=== PATIENT | female | born 1970 | race Caucasian/White ===

== ENCOUNTER 2020-08-19 14:15 | Inpatient (IN) | payer BC, SELFPAY ==
[2020-08-19] MEDS ORDERED: diphenhydrAMINE 50 MG/ML VIAL ONE (14:47)
[2020-08-19] MEDS ORDERED: Lorazepam 2 MG/ML VIAL ONE ×3 (14:47→17:08)
[2020-08-19 17:27] LABS: Bicarbonate (HCO3v) 17.8 mmol/L (22.0-28.0); CO2 Tension (PvCO2) 29.9 mmHg (40.0-50.0); Calcium, Ionized 1.02 mmol/L (1.15-1.33); Chloride 108 mmol/L (98-107); Hemoglobin - Calc 13.7 g/dL (12.0-16.0); Potassium 4.5 mmol/L (3.5-5.1); Sodium 133 mmol/L (138-145); T. Carbon Dioxide 18.7 mmol/L (22.0-28.0)
[2020-08-19] MEDS ORDERED: Cefepime 2 GM VIAL ONE (17:33)
[2020-08-19] MEDS ORDERED: Rocuronium Bromide 10 MG/ML (10ML VIAL) ONE (18:37)
[2020-08-19] MEDS ORDERED: Fentanyl 100 MCG/2 ML VIAL ONE ×2 (18:47→20:10)
[2020-08-19] MEDS ORDERED: Propofol 1,000 MG/100 ML VIAL IV ONE (18:47)
--- NOTE | 2020-08-19 18:57 | CT ---
HEAD CT WITHOUT CONTRAST: 08/19/20 COMPARISON: 04/18/20. HISTORY: Altered mental status, combative patient. TECHNIQUE: Axial CT imaging at 5 mm intervals from vertex through skull base without contrast. FINDINGS: There is motion artifact limiting detailed assessment at the level of the skull base. The imaged para nasal sinuses and mastoid air cells are well aerated. There is no displaced calvarial fracture, intra cranial hemorrhage, midline shift or mass effect. IMPRESSION: No intracranial hemorrhage or displaced calvarial fracture. POS: MARY
[2020-08-19 19:29] LABS: Actual Bicarbonate (HCO3a) 15.7 mEq/L (22-28); Analyzer IN Cardio ER; Base Excess (BEa) -10.5 mEq/L (-2.0 to +3.0); CO2 Tension 36.4 mmHg (35.0-45.0); Calcium, Ionized (arterial) 1.23 mmol/L (1.12-1.30); Carboxyhemoglobin (COHb) 0.3 gm% (0.0-3.0); Hemoglobin (Hb) 13.9 g/dL (12.0-16.0); O2 Tension (PaO2), arterial 236.7 mmHg (80.0-100.0); Potassium - ABG Lab 3.69 mmol/L (3.70-5.30)
[2020-08-19 19:30] LABS: Puncture Site RRA; pH, Arterial 7.25 (7.35-7.45)
[2020-08-19] MEDS ORDERED: Morphine 2 MG/ML VIAL SLOW IVP PRN (19:30)
[2020-08-19] MEDS ORDERED: DISCONTINUE PREVIOUS NARCOTIC PAIN MEDICATIONS AND BENZODIAZEPINES FS SCH (19:30)
[2020-08-19] MEDS ORDERED: Propofol BOLUS 1,000 MG/100 ML VIAL IV PRN (19:30)
[2020-08-19] MEDS ORDERED: Acyclovir Sodium 660 MG in Sodium Chloride 0.9% 100 ML IVPB SCH (19:30)
[2020-08-19] MEDS ORDERED: Vancomycin HCl 1.75 GM in Sodium Chloride 0.9% 500 ML IVPB SCH (19:30)
[2020-08-19] MEDS ORDERED: Fentanyl BOLUS 250 ML IVPB PRN (19:30)
--- NOTE | 2020-08-19 19:40 | RAD ---
CHEST 1 VIEW: Date: 08/19/2200 Time: 1509 hours HISTORY: Cough, chest pain. FINDINGS: The heart size is normal. The lungs are well expanded without lobar consolidation, pneumothoraces, or pleural effusions. IMPRESSION: No acute process. POS: OFF
--- NOTE | 2020-08-19 19:47 | RAD ---
XR Chest 1 View Portable History: Altered metal status Comparison: Radiograph same day Findings: Endotracheal tube tip level the clavicles in good position. Enteric tube tip in the gastric fundus. Hazy atelectasis within both lung bases. No pneumothorax. Impression: Satisfactory location of the endotracheal and enteric tubes.
[2020-08-19 20:13] LABS: T4 14.9 ug/dL (4.87-11.72); Thyroid Stimulating Hormone 0.0464 uIU/mL (0.35-4.94)
[2020-08-19 20:16] LABS: Troponin I Less than 0.010 ng/mL (< 0.028)
[2020-08-19 20:17] LABS: ALT (SGPT) 36 U/L (8-55); AST (SGOT) 44 U/L (5-34); Acetaminophen Less than 6.0 mcg/mL (10.0-30.0); Albumin 4.6 g/dL (3.5-5.0); Alcohol Less than 10 mg/dL (Less than 10); Alkaline Phosphatase 101 U/L (40-110); Anion Gap 22 mmol/L (10-20); BUN (Urea Nitrogen) 21 mg/dL (9.8-20.1); Bilirubin, Total 1.8 mg/dL (0.2-1.2); Calc. Creatinine Clearance 0 mL/min (70-130); Calcium 9.7 mg/dL (7.8-10.44); Carbon Dioxide 16 mmol/L (22-29); Chloride 103 mmol/L (98-107); Glucose 79 mg/dL (70-105); Potassium 4.3 mmol/L (3.5-5.1); Protein, Total 7.6 g/dL (6.0-8.3); Salicylate Less than 8.0 mg/dL (15.0-30.0); Sodium 137 mmol/L (136-145)
[2020-08-19 20:21] LABS: Bacteria/HPF None Seen HPF (None Seen); Bilirubin Negative (Negative); Blood, Urine Negative (Negative); Clarity Clear (Clear); Glucose, Urine (Dipstick) Normal (Negative); Ketone, Urine 20 mg/dL (Negative); Leukocyte Negative Leu/uL (Negative); Nitrite Negative (Negative); Protein, Urine (Dipstick) 10 mg/dL (Neg-Trace); RBC/HPF 0-3 HPF (0-3); Squamous Epithelial 0-3 HPF (0-3); Urobilinogen Normal mg/dL (Less than 2); WBC/HPF 0-3 HPF (0-3)
[2020-08-19 20:22] LABS: Amphetamine Detected (NotDetected); Barbiturates Screen Not Detected (NotDetected); Benzodiazepine Screen Not Detected (NotDetected); Cocaine Metabolite Screen Not Detected (NotDetected); Medtox Control Line Valid? VALID (VALID); Medtox Reader # READER 4; Methadone Not Detected (NotDetected); Methamphetamine Not Detected (NotDetected); Opiate Screen Not Detected (NotDetected); Oxycodone Screen Not Detected (NotDetected); Phencyclidine (PCP) Not Detected (NotDetected); THC/Cannabinoid Screen Not Detected (NotDetected); Tricyclic Screen Not Detected (NotDetected)
[2020-08-19] MEDS ORDERED: Acetaminophen 325 MG TAB PO PRN (21:42)
[2020-08-19] MEDS ORDERED: Bisacodyl 10 MG SUPP PR PRN (21:42)
[2020-08-19] MEDS ORDERED: Ondansetron ODT 4 MG TAB PO PRN (21:42)
[2020-08-19] MEDS ORDERED: Acetaminophen 650 MG Suppository PR PRN (21:42)
[2020-08-19] MEDS ORDERED: Ondansetron PF 4 MG/2 ML Vial IVP PRN (21:42)
--- NOTE | 2020-08-19 21:42 | PDOC.FPRHP ---
- History of Present Illness Chief Complaint: altered History of Present Illness: Pt is a 49 yo F with a PMH of depression, hypothyroidism, HTN who presents today altered. History was collected solely from . Last night patient started acting "weird". She complained of mouth ulcers but no other complaints. She see med to fidget more, but was still able to function. Today, however, patient became altered and started writhing around with sudden, jerking movements. She was unable to communicate. The choreiform movements start in her face and then go to her arms and legs. She has had mouth ulcers for about 10 years and notes when she complaints of these ulcers she also makes alot of sudden movements but is still able to function. Over this summer in March/April she was admitted to [facility] for a similar episode as today and was intubated and had a hospital stay of 2-3 weeks. She does not have a seizure disorder, but states she had seizures and passed out with her previous episode like this. She was seen by many specialists and all the knows is they did not have an answer. They did two LPs, an EEG and many scans of her head but he does not think anything was found. Her wants her to get a toxicology screen, although he has never seen her using any drugs. He does state that she sometimes will take medications not as prescribed, such as her depression medications and weight loss medications, but he thinks she is only taking synthroid now. He denies her complaining of any fevers, CP, SOB, vision changes, NELSON, abdominal pain, diarrhea. ED Course: acyclovir, 2L fluid, vanc, Lorazepam, Benadryl intubated in the ED, on propofol and fentanyl. LP attempted but not successful - Allergies/Adverse Reactions Allergies Allergy/AdvReac Type Severity Reaction Status Date / Time No Known Allergies Allergy Unverified 08/20/20 02:25 - Home Medications Medication Instructions Recorded Confirmed Type Levothyroxine Sodium 125 mcg PO DAILY 08/20/20 08/20/20 History [Levothyroxine] - History PMHx: HTN, hypothyroidism, depression PSHx: none FHx: sister- hemachromatosis Social: denies drug alcohol or tobacco use - Review of Systems ROS unobtainable: due to mental status - Vital signs BP: 107/60 HR: 119 RR: 30 Tmax: 102 Pox: 94% on RA Wt: 93 kg - Physical Exam -Constitutional: jerking around with sudden movements, unable to sit still. Flailing arms and legs. Once intubated, more calm but still moving around quite a bit HEENT: normocephalic and atraumatic -HEENT: many apthous ulcers on oral exam -Heart: tachycardic Lungs: CTAB, good air movement Abdomen: soft Musculoskeletal: normal structure -Neurological: pupils constricted to 2-3 mm -Skin: diffuse maculopapular rash -Psychiatric: not able to communicate FMR H&P: Results - Labs Result Diagrams: 08/20/20 09:36 08/20/20 09:36 Lab results: ABG pH 7.25 (7.35-7.45) L* 08/19/20 19:21 ABG pCO2 36.4 mmHg (35.0-45.0) 08/19/20 19:21 ABG pO2 236.7 mmHg (80.0-100.0) H 08/19/20 19:21 VBG pCO2 29.9 mmHg (40.0-50.0) L 08/19/20 16:54 VBG pO2 133.0 mmHg (35.0-45.0) H 08/19/20 16:54 Sodium 137 mmol/L (136-145) 08/19/20 15:40 Potassium 4.3 mmol/L (3.5-5.1) 08/19/20 15:40 Chloride 103 mmol/L (98-107) 08/19/20 15:40 Carbon Dioxide 16 mmol/L (22-29) L 08/19/20 15:40 BUN 21 mg/dL (9.8-20.1) H 08/19/20 15:40 Creatinine 1.12 mg/dL (0.6-1.1) H 08/19/20 15:40 Glucose 79 mg/dL (70-105) 08/19/20 15:40 Calcium 9.7 mg/dL (7.8-10.44) 08/19/20 15:40 Total Bilirubin 1.8 mg/dL (0.2-1.2) H 08/19/20 15:40 AST 44 U/L (5-34) H 08/19/20 15:40 ALT 36 U/L (8-55) 08/19/20 15:40 Alkaline Phosphatase 101 U/L (40-110) 08/19/20 15:40 Ammonia 37 umol/L (18-72) 08/19/20 15:40 Serum Total Protein 7.6 g/dL (6.0-8.3) 08/19/20 15:40 Albumin 4.6 g/dL (3.5-5.0) 08/19/20 15:40 Urine Ketones 20 mg/dL (Negative) A 08/19/20 15:40 Urine Blood Negative (Negative) 08/19/20 15:40 Urine Nitrite Negative (Negative) 08/19/20 15:40 Ur Leukocyte Esterase Negative Gena/uL (Negative) 08/19/20 15:40 Urine RBC 0-3 HPF (0-3) 08/19/20 15:40 Urine WBC 0-3 HPF (0-3) 08/19/20 15:40 Ur Squamous Epith Cells 0-3 HPF (0-3) 08/19/20 15:40 Urine Bacteria None Seen HPF (None Seen) 08/19/20 15:40 FMR H&P: A/P - Plan Encephalopathy with choreiform movements -2/2 Bechets vs meningitis vs drug use/polypharmacy vs another autoimmune proces s -patient has history of being altered after getting mouth sores, drug screen + for amphetamines -LP attempted in ED was unsuccessful, follow up IR guided LP -follow up ELOY screen, inflammatory markers, procal and other labs -follow up MRI brain -consider neuro and rheum consult SIRS -Tachycardic, febrile, tachypneic on admission -s/p fluids and antibiotics -unknown source, could be 2/2 meningitis, continue ampicillin, rocephin, vanc for empiric coverage; see plan above Depression -aware, not on any home meds Hypothyroidism -aware, continue levothyroxine but decrease home dose to 100mcg daily -TSH was low, T4 was high on admission labs HTN -aware, not on home meds -Hydralazine PRN Dispo: admitted to inpatient, CCU. On ventilator with pressure support of 10 and PEEP of 5. Fentanyl and Propofol for sedation, no need for pressors Diet: NPO Fluids: 100mL/hr LR DVT ppx: Lovenox Code: FULL PCP: city call FMR H&P: Upper Level - Plan Date/Time: 08/19/202141 ITrav PGY3, have evaluated this patient and agree with findings/plan as outlined by journalism intern resident. Pertinent changes/additions are listed here. 49-year-old female with past medical history of hypothyroidism presents for altered mental status and intractable lower extremity movement. states that starting 10 years ago she has had episodes where she develops oral ulcers and then has several days of altered mental status in the last 2 years these episodes have become more frequent and more severe. He states during these episodes she has no other symptoms. She has been hospitalized in the past for this at [facility] [place] [place] in [place] and has been states that the time they thought it was secondary to infection of some sort he was sent home. He states during that hospitalization she had high fever to 105. This episode started days ago and has gotten worse, on evaluation of resident team patient was nonverbal status post 5 mg of Ativan but was still very agitated. She was minimally responsive to stimuli however her legs were in constant motion repetitive flexion and extension at the hip and knee. On exam patient had slight tachycardia prior to intubation but normal rate and rhythm after intubation and vitals normalized. before she was febrile to 102 degrees, cardiopulmonary exam was within normal limits. Neurologic exam significant for above-stated lower extremity movements prior to increased sedation and intubation. Review of chest x-ray shows endotracheal tube above the afshin A/P SIRS positive without a source A- Stable and s/p 2L NS. BPs stable without need for pressors. s/p cefepime, vanc, and acyclovir. febrile and tachycardic in ED. Etiology unclear, CXR unremarkable, brain CT wnl. LP attempted and failed. P- considering choreoform mvmts and encephalopathy will treat for meningitis (vanc, rocephin, ampicillin) and plan for IR consult in AM for repeat LP -f/u BCx and UCx -trend LA Encephalopathy A- Sedated and intubated now. Differential includes intoxication vs. meningitis vs. Behet disease considering recurrent oral ulcers and neurologic manifestation P- MRI brain -morning consult IR for LP -inflammatory markers -procal -UDS Ventilator dependent A- intubated for protection of airway after multiple sedative medications P- admit CCU, consulted PULM -f/u pulm and RT recs hypothyroid A- TSH wnl, T4 14 P- will adjust home dose levothyroxine 125-->100, repeat labs in 4 weeks Dispo: admitted to inpatient, CCU. expect > 2 midnights Diet: NPO Fluids: 100mL/hr LR DVT ppx: Lovenox Code: FULL PCP: [facility] call Addendum - Attending - Attending Attestation Date/Time: 08/19/20 [id number] I personally evaluated the patient and discussed the management with Dr. Mehta and Dr. Flynn I agree with the History, Examination, Assessment and Plan documented above with any addition or exceptions noted below. Admit to ICU. Intubated. Encephalopathy. Unknown etiology. Called [facility] [place] [facility] but awaiting call back. Had extensive workup without diagnosis. Concern with possible vasculitis related disease. Rule out Lupus and Bechets. Spoke with [facility] neuro prior to LP to discuss serology orders. Not suspecting infection at this time. Start steroids. Will need to speak with uem in AM. Add serum serology. Yisel
[2020-08-19 22:32] LABS: Hemoglobin 14.7 g/dL (12.0-16.0); Mean Corpuscular HGB CONC 37.4 g/dL (32.0-36.0); Mean Corpuscular Volume 90.9 fL (78.0-98.0); Mean Platelet Volume 7.9 fL (7.4-10.4); Platelet Count 335 thou/uL (130-400); RBC Distribution Width 10.4 % (11.5-14.5); Red Blood Cell (RBC) Count 4.31 mill/uL (4.20-5.40); White Blood Cell (WBC) Count 35.5 thou/uL (4.8-10.8)
[2020-08-19 22:33] LABS: Band 15 % (5-11); Eosinophils 2 % (0-10); Lymphocytes 3 % (21-51); MDiff Complete? YES; Monocytes 4 % (0-10); Neutrophil 76 % (42-75); Platelet Morphology Comment Appears Adequate; Polychromasia SLIGHT = 2-3 cells (100X) (0-2/hpf)
[2020-08-19 23:09] LABS: SARS-CoV-2 NAA Rapid Test Not Detected (NotDetected)
[2020-08-19] MEDS ORDERED: Ventilator Sedation Protocol 1 EACH FS ONE (23:13)
[2020-08-19 23:14] VITALS: BMI 28.6
[2020-08-20 00:27] LABS: Syphilis Antibody Nonreactive (Nonreactive); Syphilis Antibody Index 0.04 S/CO (<1.00 Non-Reactive)
[2020-08-20 00:54] LABS: Lactic Acid 1.7 mmol/L (0.5-2.2)
[2020-08-20] MEDS: Lactated Ringer's 1,000 ML IV SCH ×3 (01:15→08:26)
[2020-08-20] MEDS: cefTRIAXone\\ROCEPHIN 2 GM in Sodium Chloride 0.9% 100 ML IVPB SCH ×3 (01:18→23:23)
[2020-08-20] MEDS: Propofol 1,000 MG/100 ML VIAL IV PRN ×5 (01:21→20:44)
[2020-08-20 01:41] LABS: HBSAg Index 0.18 S/CO (0-0.99); HIV (1/2) Antibody/Antigen Non-Reactive (NonReactive); HIV 1/2 INDEX 0.11 S/CO (<1.00); Hep B Surf Ag Non-Reactive S/CO (NonReactive); Hep C IgG Ab Non-Reactive (NonReactive); Hep C Index 0.07 S/CO (0-0.79)
[2020-08-20] MEDS: Lorazepam 2 MG/ML VIAL SLOW IVP PRN ×5 (03:34→18:29)
[2020-08-20] MEDS: Ampicillin 2 GM in Sodium Chloride 0.9% 100 ML IVPB SCH ×7 (03:34→22:43)
[2020-08-20] MEDS ORDERED: hydrALAZINE 20 MG/ML VIAL SLOW IVP PRN (03:45)
[2020-08-20 06:28] LABS: Actual Bicarbonate (HCO3a) 19.8 mEq/L (22-28); Base Excess (BEa) -6.7 mEq/L (-2.0 to +3.0); CO2 Tension 43.4 mmHg (35.0-45.0); Calcium, Ionized (arterial) 1.26 mmol/L (1.12-1.30); Carboxyhemoglobin (COHb) 0.4 gm% (0.0-3.0); Hemoglobin (Hb) 12.8 g/dL (12.0-16.0); O2 Tension (PaO2), arterial 158.6 mmHg (80.0-100.0); Potassium - ABG Lab 3.58 mmol/L (3.70-5.30); pH, Arterial 7.28 (7.35-7.45)
[2020-08-20] MEDS: Levothyroxine Sodium 100 MCG TAB PO SCH (06:30)
[2020-08-20 06:32] LABS: Puncture Site RRA
[2020-08-20] MEDS: fentaNYL Citrate/PF 2,000 MCG in Sodium Chloride 0.9% 60 ML IV SCH ×2 (06:43→18:48)
--- NOTE | 2020-08-20 07:46 | PDOC.FM ---
- Subjective Subjective: Stable on ventilator. RN Reports jerking, irregular movements when on sedation vacation. - Objective MAR Reviewed: Yes Vital Signs & Weight: Vital Signs (12 hours) Temp Pulse Resp BP Pulse Ox 08/20/20 06:33 72 92/50 L 08/20/20 06:00 16 08/20/20 04:00 98.3 F 16 08/20/20 02:42 73 94/52 L 08/20/20 02:00 16 08/20/20 00:37 100 08/20/20 00:00 16 08/19/20 23:58 76 92/53 L 08/19/20 23:19 16 08/19/20 23:00 98.1 F Weight Weight 90.6 kg Most Recent Monitor Data Heart Rate from ECG 76 NIBP 102/60 NIBP BP-Mean 74 Respiration from ECG 16 SpO2 100 I&O: 08/19/20 08/20/20 08/21/20 06:59 06:59 06:59 Intake Total 2061 Output Total 660 Balance 1401 Result Diagrams: 08/20/20 09:36 08/20/20 09:36 Radiology Reviewed by me: Yes Phys Exam - Physical Examination Constitutional: NAD HEENT: moist MMs, sclera anicteric Neck: no nodes Respiratory: no wheezing, no rales, no rhonchi, clear to auscultation bilateral Cardiovascular: RRR, no significant murmur Gastrointestinal: soft, non-tender Musculoskeletal: no edema Neurological: moves all 4 limbs Skin: no rash, normal turgor Dx/Plan (1) Encephalopathy acute Code(s): G93.40 - ENCEPHALOPATHY, UNSPECIFIED Status: Acute (2) Depression Code(s): F32.9 - MAJOR DEPRESSIVE DISORDER, SINGLE EPISODE, UNSPECIFIED Status: Acute (3) Hypothyroidism Code(s): E03.9 - HYPOTHYROIDISM, UNSPECIFIED Status: Acute (4) HTN (hypertension) Code(s): I10 - ESSENTIAL (PRIMARY) HYPERTENSION Status: Acute - Plan Plan: General / CCU - Intubated 08/19 - On propofol and fentanyl for sedation Encephalopathy with choreiform movements - Wide differential at this time. Has had previous workup for similar presentation at [facility] in [place]. bring records this evening and [facility] faxed for records. - Consult neurology, appreciate recommendations. - Positive drug screen for amphetamines - LP pending - MRI pending - h/o mouth ulcers, add HSV to CSF studies. SIRS - Tachycardic, febrile, tachypneic on admission - s/p fluids and antibiotics - unknown source, could be 2/2 meningitis, continue ampicillin, rocephin, vanc for empiric coverage Depression - Will verify with home medications Hypothyroidism - Aware, continue levothyroxine but decrease home dose to 100mcg daily - TSH was low, T4 was high on admission labs HTN - aware, not on home meds - Hydralazine PRN Dispo: Admitted to inpatient, CCU. Anticipate LOS > 48 hours. Diet: NPO, if remains on ventilator will initiate tube feeds. Fluids: 100mL/hr LR DVT ppx: Lovenox Code: FULL PCP: candace vaughn Addendum - Attending - Attending Attestation Date/Time: 08/20/20 2206 I personally evaluated the patient and discussed the management with Dr. Gamboa. I agree with the History, Examination, Assessment and Plan documented above with any addition or exceptions noted below. Patient here with encephalopathy and movement disorder of currently uncertain etiology. Choreaform versus ballismus movements, with history of similar while hospitalized at [facility]. Will attempt to obtain records. Needs MRI and LP today. Neuro consult, suspect EEG needed. Wide differential including toxic, medication induced, autoimmune, infectious. Continue airway protection on ventilator, wean as tolerated. Further workup and mgmt pending clinical course.
--- NOTE | 2020-08-20 08:50 | CON ---
DATE OF CONSULTATION: 08/20/2020 This is 45 minutes of critical care time. REASON FOR CONSULTATION: Ventilator management and ICU management. HISTORY OF PRESENT ILLNESS: This is a 49-year-old female, who presented to the hospital last night with choreiform movements and altered mental status. I am told she had a similar hospitalization this summer at [facility]. The residence history mentions mouth ulcers. Also mentions a rash. She is scheduled to go down for a lumbar puncture later today. She has been intubated and has been placed on mechanical ventilation. I think mainly for sedation purposes more than anything else. Neurology has also been consulted and she is scheduled for an MRI later today. PAST MEDICAL HISTORY: 1. Hypothyroidism. 2. Depression. 3. Hypertension. PAST SURGICAL HISTORY: None. FAMILY MEDICAL HISTORY: Remarkable for hemochromatosis in the sister. SOCIAL HISTORY: Does not smoke. Does not use illicit drugs, but did have a positive drug screen for amphetamines. REVIEW OF SYSTEMS: Unobtainable because the patient is intubated. ALLERGIES: NONE. PHYSICAL EXAMINATION: VITAL SIGNS: Heart rate 90, blood pressure 125/75, O2 saturation 100%, respiratory rate 26, and temperature 98.4. GENERAL: She is a middle-aged woman, who does not appear to be in any overt distress when she is sedated. HEENT: Looks like there is an ulcer on her upper lip. NECK: No adenopathy or JVD. LUNGS: Clear to auscultation. CARDIOVASCULAR: S1 and S2. Regular without murmur. ABDOMEN: Soft and nontender to palpation. EXTREMITIES: No clubbing, cyanosis, or edema. She moves all 4 extremities. LABORATORY DATA: White blood cell count 35.5, hematocrit 39.2, platelet count 335 with 76% neutrophils, 15% bands. PH of 7.28, pCO2 of 43, pO2 of 158, that is on SIMV rate 16, tidal volume 450, PEEP 5, pressure support 10, FiO2 of 40%. Sodium 137, potassium 4.3, chloride 103, CO2 of 16, BUN 21, creatinine 1.1, glucose 79, AST 44, ALT 36, total bilirubin 1.8. TSH is 0.04. Free T4 is 2.6. Thyroxine level is 14.9. C-reactive protein is 15.7. Procalcitonin level is 0.27. Chest x-ray demonstrates an intubated patient. The endotracheal tube is appropriately positioned. The lung tejada are clear. ASSESSMENT: This is a 49-year-old female presenting with altered mental status with an anion gap metabolic acidosis. She has a slight metabolic alkalosis also. Her thyroid function test show hyperthyroidism, which I would guess is secondary to exogenous administration of thyroid medication given review of her medication profile. The differential diagnosis of altered mental status would be vasculitis such as, Behcet's disease, overt meningitis, or ingestion of inappropriate medication. Her tox screen does not show any elevation of acetaminophen or aspirin. Alcohol level is less than 10. Amphetamine screen was positive. It does not look like methanol or ethylene glycol levels were checked. I will look into whether or not she has an osmolar gap. PLAN: I would leave intubated and sedated and obtain the lumbar puncture and MRI as you are doing. If further workup for infection is negative, then I would consider Rheumatology consultation and perhaps treatment of vasculitis with steroids. If Rheumatology is unable to come to the hospital, then I would suggest transfer to a center, where that is available if consultation needed. Job ID: [id number]
[2020-08-20] MEDS ORDERED: Enoxaparin Sodium 40 MG/0.4 ML SYRINGE SC SCH (09:00)
[2020-08-20] MEDS ORDERED: Non-Formulary Item 1 EACH (Levothyroxine Sodium [Levothyroxine] 137 MCG Capsule) PO SCH (09:00)
[2020-08-20] MEDS: SODIUM CHLORIDE 0.45% IV SCH ×2 (09:45→21:18)
[2020-08-20] MEDS: SODIUM BICARBONATE IV SCH ×2 (09:45→21:18)
[2020-08-20] MEDS: Vecuronium 10 MG VIAL IV PRN ×2 (09:59→11:50)
[2020-08-20 10:05] LABS: #Eosinphils 0.3 thou/uL (0.0-0.7); #Lymphocytes 1.9 thou/uL (1.20-3.40); #Monocytes 0.8 thou/uL (0.11-0.59); #Neutrophils 9.7 thou/uL (1.40-6.50); %Basophils 0.4 % (0.0-1.0); %Eosinophils 2.1 % (0.0-10.0); %Lymphocytes 15.1 % (21.0-51.0); %Monocytes 6.5 % (0.0-10.0); Hemoglobin 13.1 g/dL (12.0-16.0); Mean Corpuscular HGB CONC 35.2 g/dL (32.0-36.0); Mean Corpuscular Hemoglobin 33.7 pg (27.0-31.0); Mean Corpuscular Volume 95.9 fL (78.0-98.0); Mean Platelet Volume 7.4 fL (7.4-10.4); Platelet Count 255 thou/uL (130-400); RBC Distribution Width 10.8 % (11.5-14.5); Red Blood Cell (RBC) Count 3.88 mill/uL (4.20-5.40); White Blood Cell (WBC) Count 12.8 thou/uL (4.8-10.8)
[2020-08-20 10:15] LABS: ALT (SGPT) 30 U/L (8-55); AST (SGOT) 37 U/L (5-34); Albumin 3.4 g/dL (3.5-5.0); Alkaline Phosphatase 77 U/L (40-110); Anion Gap 14 mmol/L (10-20); BUN (Urea Nitrogen) 16 mg/dL (9.8-20.1); Bilirubin, Total 0.6 mg/dL (0.2-1.2); Calc. Creatinine Clearance 113 mL/min (70-130); Calcium 8.6 mg/dL (7.8-10.44); Carbon Dioxide 18 mmol/L (22-29); Chloride 109 mmol/L (98-107); Globulin 2.5 g/dL (2.4-3.5); Glucose 64 mg/dL (70-105); Potassium 3.7 mmol/L (3.5-5.1); Protein, Total 5.9 g/dL (6.0-8.3); Sodium 137 mmol/L (136-145)
[2020-08-20 12:31] LABS: Ref Lab Test Ordered AMPHETAMINES UR; Reference Lab Name LABCORP
--- NOTE | 2020-08-20 12:55 | MRI ---
MRI BRAIN WITH AND WITHOUT CONTRAST: DATE: 08/20/2020 HISTORY: 49-year-old female with encephalopathy, choreiform movements. Altered mental status. TECHNIQUE: Multiple sequences obtained in axial, sagittal, and coronal planes; pre and post IV injection of gado linium-based contrast agent: 18 mL MultiHance. FINDINGS: The ventricles are normal in size and configuration. On FLAIR, the bilateral cerebral white matter a ppears diffusely slightly more hyperintense than usual. That could be due to technique, although actu al white matter pathology is not completely ruled out. The sulci appear minimally narrowed diffusely . There is no asymmetrical intraaxial signal abnormality, restricted diffusion, abnormal intraaxial e nhancement, mass, midline shift or any other mass effect, recent intraaxial hemorrhage, or extraaxial fluid collection. IMPRESSION: 1) Questionable diffuse mild acute white matter pathology vs normal. 2) Consider follow up. [email or web address][] POS: JIN
[2020-08-20 13:09] LABS: CSF, Glucose 55 mg/dl (40-70); CSF, Protein 52 mg/dL (15-40)
[2020-08-20 13:10] LABS: CSF Source CSF; Clarity Clear (Clear); Tube # 4
[2020-08-20] MEDS: Vancomycin 1.5 GRAM/300 ML BAG 1.5 GM in Premix Bag 1 BAG IVPB SCH ×2 (13:16→21:18)
[2020-08-20 13:21] LABS: Unspun CSF Color COLORLESS (Colorless)
[2020-08-20 13:22] LABS: Color Of CSF Supernatant COLORLESS (Colorless); Tube # 1
--- NOTE | 2020-08-20 13:25 | PDOC.EVN ---
Event Note - Event Note Event Note: Called patient's to elicit more history and update on his status. He states that she frequently has outbreaks of oral lesions and will "go through a tube of orajel" because they are so painful. He states that in April when her neurological symptoms presented she had oral lesions and again for this presentation. He is convinced there is a connection. He states she was writhing around in bed and incoherent. He says in April they let it go on longer prior to bringing her to the hospital. This time they came to the hospital sooner. They live in [place], [place]. He endorses that she used illicit drugs more than 20 years ago before they , however he does not believe she uses any now. She only takes medication for her thyroid. Her PCP is Dr. Tang in [place], [place].
--- NOTE | 2020-08-20 13:52 | RAD ---
FLUOROSCOPIC GUIDED LUMBAR PUNCTURE: INDICATION: Altered mental status with concern for meningitis. TECHNIQUE: Informed consent was obtained of the patient. The patient was sedated and intubated with respiratory therapy and the patient's ICU nurse present at bedside during the procedure. The patient was placed prone on the fluoroscopic table. Site overlying the right L2-3 interlaminar space was marked on the p atient's skin. The site was prepped and draped in the usual sterile fashion. Buffered 1% lidocaine was administered to the overlying subcutaneous tissues. Under fluoroscopic guidance, a 22-gauge spina l needle was guided down into the thecal sac via the right L2-3 interlaminar space. There was spontaneous return of normal appearing CSF fluid. 11.5 cc of normal-appearing CSF was removed in 4 se parate aliquots. The inner stylette was replaced within the needle and the needle was removed. Pressure was held at the sampling site till hemostasis was obtained. The site was then cleansed and b andaged. Total fluoroscopic time was 0.6 minutes. Total exposure was 269.1 microGy*^m2. IMPRESSION: Successful fluoroscopic-guided lumbar puncture with removal of 11.5 cc of normal appearing CSF fluid. Transcribed Date/Time: 08/20/2020 2:35 PM
--- NOTE | 2020-08-20 15:58 | CON ---
NEUROLOGY CONSULTATION DATE OF CONSULTATION: 08/20/2020 REASON FOR CONSULTATION: Altered mental status. HISTORY OF PRESENT ILLNESS: Ms. Loreta Brown is a 49-year-old female with medical history significant for depression, hypothyroidism, hypertension, presented to the emergency room yesterday with altered mental status. No family at bedside, so history is obtained from review of the medical records. Per the patient's , she was brought last night because she was acting weird and has mouth ulcers, and seems to be fidgety and has sudden jerking movements of the extremities. The abnormal movements usually starts in her face and then go to her legs and arms. She also had mouth ulcers for about 10 years, but she was still able to function. At this time, she was admitted to [facility] with a similar episode and was intubated and hospital stay was 2 to 3 weeks. She does not have a seizure disorder, but she had episodes, which look like seizures with abnormal jerking. She has been seen by many specialists and all her workup have been negative so far including two LPs and EEGs and the several scans of her head. She does have history of depression and hypothyroidism and takes only thyroid medication. The denies any focal weakness, focal paresthesias, nausea, vomiting, headache, chest pain, abdominal pain, headache, double vision, recent illness or recent exposure to COVID. In the emergency room, she was extremely agitated and she was intubated and sedated with propofol and fentanyl. She was also started on acyclovir and fluids and vancomycin. ALLERGIES: NO KNOWN DRUG ALLERGIES. PAST MEDICAL HISTORY: Hypertension, hypothyroidism, depression. PAST SURGICAL HISTORY: None. FAMILY HISTORY: Sister has hemochromatosis. SOCIAL HISTORY: The patient denies alcohol. The denies any drug, alcohol, or illegal drug use. She has history of using illicit drugs 20 years ago before she was . REVIEW OF SYSTEMS: Unobtainable due to the patient's mental status. Vital Signs & Weight: Vital Signs (12 hours) Temp Pulse Resp BP Pulse Ox 08/20/20 06:33 72 92/50 L 08/20/20 06:00 16 08/20/20 04:00 98.3 F 16 08/20/20 02:42 73 94/52 L 08/20/20 02:00 16 08/20/20 00:37 100 08/20/20 00:00 16 08/19/20 23:58 76 92/53 L 08/19/20 23:19 16 08/19/20 23:00 98.1 F Weight Weight 90.6 kg Most Recent Monitor Data Heart Rate from ECG 76 NIBP 102/60 NIBP BP-Mean 74 Respiration from ECG 16 SpO2 100 I&O: 08/19/20 08/20/20 08/21/20 06:59 06:59 06:59 Intake Total 2061 Output Total 660 Balance 1401 PHYSICAL EXAMINATION: Constitutional: NAD HEENT: moist MMs, sclera anicteric Neck: no nodes Respiratory: no wheezing, no rales, no rhonchi, clear to auscultation bilateral Cardiovascular: RRR, no significant murmur Gastrointestinal: soft, non-tender Musculoskeletal: no edema Neurological: Mental status, the patient is intubated and sedated. She does not follow commands. She does not maintain eye contact. Cranial nerves pupils 4 mm, round and reactive to light. Face symmetric. Tongue midline. Corneals positive. Cough positive. Motor, muscle tone and bulk are normal. No spontaneous movement of all 4 extremities seen. Sensory, withdraws to nailbed pressure bilaterally. Cerebellar, did not cooperate with the testing due to sedation. Gait deferred due to the patient's safety reason and due to the patient being sedated and intubated. NEUROLOGIC: DATA REVIEWED: I reviewed the MRI of the brain, which was negative for acute intracranial pathology. She has increased white count 35.5 and also on initial presentation, BUN was 21 and creatinine of 1.12. Lab results: ABG pH 7.25 (7.35-7.45) L* 08/19/20 19:21 ABG pCO2 36.4 mmHg (35.0-45.0) 08/19/20 19:21 ABG pO2 236.7 mmHg (80.0-100.0) H 08/19/20 19:21 VBG pCO2 29.9 mmHg (40.0-50.0) L 08/19/20 16:54 VBG pO2 133.0 mmHg (35.0-45.0) H 08/19/20 16:54 Sodium 137 mmol/L (136-145) 08/19/20 15:40 Potassium 4.3 mmol/L (3.5-5.1) 08/19/20 15:40 Chloride 103 mmol/L (98-107) 08/19/20 15:40 Carbon Dioxide 16 mmol/L (22-29) L 08/19/20 15:40 BUN 21 mg/dL (9.8-20.1) H 08/19/20 15:40 Creatinine 1.12 mg/dL (0.6-1.1) H 08/19/20 15:40 Glucose 79 mg/dL (70-105) 08/19/20 15:40 Calcium 9.7 mg/dL (7.8-10.44) 08/19/20 15:40 Total Bilirubin 1.8 mg/dL (0.2-1.2) H 08/19/20 15:40 AST 44 U/L (5-34) H 08/19/20 15:40 ALT 36 U/L (8-55) 08/19/20 15:40 Alkaline Phosphatase 101 U/L (40-110) 08/19/20 15:40 Ammonia 37 umol/L (18-72) 08/19/20 15:40 Serum Total Protein 7.6 g/dL (6.0-8.3) 08/19/20 15:40 Albumin 4.6 g/dL (3.5-5.0) 08/19/20 15:40 Urine Ketones 20 mg/dL (Negative) A 08/19/20 15:40 Urine Blood Negative (Negative) 08/19/20 15:40 Urine Nitrite Negative (Negative) 08/19/20 15:40 Ur Leukocyte Esterase Negative Gena/uL (Negative) 08/19/20 15:40 Urine RBC 0-3 HPF (0-3) 08/19/20 15:40 Urine WBC 0-3 HPF (0-3) 08/19/20 15:40 Ur Squamous Epith Cells 0-3 HPF (0-3) 08/19/20 15:40 Urine Bacteria None Seen HPF (None Seen) 08/19/20 15:40 ASSESSMENT AND PLAN: (1) Encephalopathy acute Code(s): G93.40 - ENCEPHALOPATHY, UNSPECIFIED Status: Acute (2) Depression Code(s): F32.9 - MAJOR DEPRESSIVE DISORDER, SINGLE EPISODE, UNSPECIFIED Status: Acute (3) Hypothyroidism Code(s): E03.9 - HYPOTHYROIDISM, UNSPECIFIED Status: Acute (4) HTN (hypertension) Code(s): I10 - ESSENTIAL (PRIMARY) HYPERTENSION Status: Acute MsDudley Brown is a 49-year-old female with medical history significant for hypertension, hypothyroidism, oral ulcers, presented with altered mental status with choreiform movements. Differential diagnosis includes Bechets disease versus meningitis versus drug versus autoimmune process. MRI of the brain reviewed, which was negative for acute intracranial pathology. Consider Rheumatology input regarding autoimmune process and the ID input for concern about meningitis because of increased white count. LP completed, results pending. EEG to rule out underlying cortical irritability and to capture these choreiform movement episodes for definitive diagnosis. Neuro checks every 4 hours. Continue medical management per primary team. Further recommendations will depend on the results of the testing. Plan discussed in detail with the nursing staff and also with the primary team. We will continue to follow. Thank you for the consult. Job ID: [id number] MTDD
[2020-08-20] MEDS: methylPREDNISolone Sod Succ 40 MG VIAL IVP SCH ×2 (18:09→23:24)
--- NOTE | 2020-08-20 21:22 | PDOC.EEG ---
Neurology EEG Report - Report Report: This EEG was performed using 24 channel [employer] video digital EEG machine with 24 disc electrodes. This was an extended 2-hours 4 minutes of inpatient video EEG recording. Digital analysis of the EEG was done for [place] and seizure detection which revealed no abnormalities. Background: The posterior background rhythm is not observed. Hyperventilation: Not performed. Photic stimulation. Bioccipital symmetric response not seen with photic stimulation. Sleep: No stage change was observed. EEG diagnosis: Generalized irregular theta activity seen with superimposed beta seen during the recording. Absence of posterior background rhythm. Clinical interpretation: This EEG is consistent with mild to moderate generalized nonspecific cerebral dysfunction.
[2020-08-21] MEDS: Ampicillin 2 GM in Sodium Chloride 0.9% 100 ML IVPB SCH ×2 (04:15→07:46)
[2020-08-21] MEDS: fentaNYL Citrate/PF 2,000 MCG in Sodium Chloride 0.9% 60 ML IV SCH ×2 (04:18→17:05)
[2020-08-21] MEDS: Propofol 1,000 MG/100 ML VIAL IV PRN ×5 (04:20→20:34)
[2020-08-21] MEDS: SODIUM BICARBONATE IV SCH (05:56)
[2020-08-21] MEDS: SODIUM CHLORIDE 0.45% IV SCH (05:56)
[2020-08-21] MEDS: Levothyroxine Sodium 100 MCG TAB PO SCH (05:57)
[2020-08-21] MEDS: methylPREDNISolone Sod Succ 40 MG VIAL IVP SCH ×4 (05:58→23:02)
[2020-08-21 06:18] LABS: #Lymphocytes 0.7 thou/uL (1.20-3.40); #Neutrophils 8.1 thou/uL (1.40-6.50); %Basophils 0.1 % (0.0-1.0); %Eosinophils 0.1 % (0.0-10.0); %Lymphocytes 7.3 % (21.0-51.0); %Monocytes 0.2 % (0.0-10.0); %Neutrophils 92.3 % (42.0-75.0); Hemoglobin 12.2 g/dL (12.0-16.0); Mean Corpuscular HGB CONC 35.2 g/dL (32.0-36.0); Mean Corpuscular Hemoglobin 33.1 pg (27.0-31.0); Mean Platelet Volume 7.7 fL (7.4-10.4); Platelet Count 251 thou/uL (130-400); RBC Distribution Width 10.6 % (11.5-14.5); Red Blood Cell (RBC) Count 3.69 mill/uL (4.20-5.40); White Blood Cell (WBC) Count 8.8 thou/uL (4.8-10.8)
[2020-08-21 06:41] LABS: ALT (SGPT) 34 U/L (8-55); AST (SGOT) 33 U/L (5-34); Albumin 3.2 g/dL (3.5-5.0); Alkaline Phosphatase 76 U/L (40-110); Anion Gap 19 mmol/L (10-20); BUN (Urea Nitrogen) 17 mg/dL (9.8-20.1); Bilirubin, Total 0.3 mg/dL (0.2-1.2); Calc. Creatinine Clearance 103 mL/min (70-130); Calcium 8.2 mg/dL (7.8-10.44); Carbon Dioxide 17 mmol/L (22-29); Chloride 109 mmol/L (98-107); Globulin 2.5 g/dL (2.4-3.5); Glucose 120 mg/dL (70-105); Potassium 3.9 mmol/L (3.5-5.1); Protein, Total 5.7 g/dL (6.0-8.3); Sodium 141 mmol/L (136-145)
[2020-08-21 06:53] LABS: Actual Bicarbonate (HCO3a) 16.8 mEq/L (22-28); Base Excess (BEa) -10.1 mEq/L (-2.0 to +3.0); CO2 Tension 40.2 mmHg (35.0-45.0); Calcium, Ionized (arterial) 1.25 mmol/L (1.12-1.30); Carboxyhemoglobin (COHb) 0.7 gm% (0.0-3.0); Hemoglobin (Hb) 14.9 g/dL (12.0-16.0); O2 Tension (PaO2), arterial 83.2 mmHg (80.0-100.0)
--- NOTE | 2020-08-21 07:12 | PDOC.FM ---
- Subjective Subjective: Stable this morning. Having breakthrough agitation/movements despite sedation. - Objective MAR Reviewed: Yes Vital Signs & Weight: Vital Signs (12 hours) Temp Pulse Resp BP Pulse Ox 08/21/20 06:00 16 08/21/20 04:00 98 F 16 08/21/20 02:44 88 108/60 08/21/20 02:00 16 08/21/20 00:00 97.9 F 16 08/20/20 23:51 86 08/20/20 22:00 16 08/20/20 20:00 99.4 F 16 100 Weight Admit Weight 90.265 kg Weight 90.6 kg Most Recent Monitor Data Heart Rate from ECG 78 NIBP 101/56 NIBP BP-Mean 71 Respiration from ECG 1 SpO2 100 I&O: 08/20/20 08/21/20 08/22/20 06:59 06:59 06:59 Intake Total 2061 3843 Output Total 660 2985 Balance 1401 858 Result Diagrams: 08/21/20 05:50 08/21/20 05:50 Radiology Reviewed by me: Yes Phys Exam - Physical Examination Constitutional: NAD HEENT: PERRLA, moist MMs Neck: no nodes Respiratory: no wheezing, no rales, no rhonchi, clear to auscultation bilateral Cardiovascular: RRR, no significant murmur Gastrointestinal: soft, no distention Musculoskeletal: no edema Neurological: moves all 4 limbs abnormal, jerking movemens. Deviation from normal: Intubated and sedated Skin: no rash, normal turgor Dx/Plan (1) Encephalopathy acute Code(s): G93.40 - ENCEPHALOPATHY, UNSPECIFIED Status: Acute (2) Depression Code(s): F32.9 - MAJOR DEPRESSIVE DISORDER, SINGLE EPISODE, UNSPECIFIED Status: Acute (3) Hypothyroidism Code(s): E03.9 - HYPOTHYROIDISM, UNSPECIFIED Status: Acute (4) HTN (hypertension) Code(s): I10 - ESSENTIAL (PRIMARY) HYPERTENSION Status: Acute - Plan Plan: General / CCU - Intubated 08/19 - On propofol and fentanyl for sedation - architectural renderer consulted for tube feeds. Encephalopathy with choreiform movements - Wide differential at this time. Has had previous workup for similar presentation at [facility] in [place]. bring records this evening and [facility] faxed for records. - Consult neurology, appreciate recommendations. EEG showed mild to moderate generalized nonspecific cerebral dysfunction. - Positive drug screen for amphetamines - LP cultures and HSV pending. - MRI negative for acute intracranial pathology. Non-anion gap metabolic acidosis - aware, received bicarb yesterday without significant improvement. SIRS - Tachycardic, febrile, tachypneic on admission - s/p fluids and antibiotics - unknown source, could be 2/2 meningitis, continue ampicillin, rocephin, vanc for empiric coverage Depression - Currently not on any medications. Hypothyroidism - Aware, continue levothyroxine but decrease home dose to 100mcg daily - TSH was low, T4 was high on admission labs HTN - aware, not on home meds - Hydralazine PRN Dispo: Admitted to inpatient, CCU. Anticipate LOS > 48 hours. Diet: Tube feeds Fluids: SL DVT ppx: Lovenox Code: FULL PCP: Dr. Tang in [place], [place] Addendum - Attending - Attending Attestation Date/Time: 08/21/20 1038 I personally evaluated the patient and discussed the management with Dr. Gamboa. I agree with the History, Examination, Assessment and Plan documented above with any addition or exceptions noted below. Patient overall stable. Continues to have some persistent movements despite sedation. MRI non revealing, LP studies resulting normal but so far nothing major noted. Neuro and Pulm on board. Continue present management and further mgmt pending clinical course.
[2020-08-21 07:21] LABS: Puncture Site RRA; pH, Arterial 7.24 (7.35-7.45)
--- NOTE | 2020-08-21 08:48 | RAD ---
CHEST 1 VIEW PORTABLE: Date: 08/21/2020 HISTORY: Follow-up pneumonia. COMPARISON: 08/19/2020. FINDINGS/IMPRESSION: NG tube and endotracheal tube remain in place. Bilateral vascular congestion with increased markings in the perihilar regions and lower lung zones, showing some progression when compared to 08/19/2020 s tudy. No new confluent pneumonia or significant pleural effusion. Continue short-term follow-up. POS: RRE
--- NOTE | 2020-08-21 09:01 | PRG ---
DATE OF SERVICE: 08/21/2020 35 minutes of critical care time. SUBJECTIVE: The patient remains intubated on mechanical ventilation. She will wake up and follow some commands. OBJECTIVE: VITAL SIGNS: Temperature 98, pulse 72, blood pressure 99/50, O2 saturation 100%, 24-hour intake 3843 and output 2985. HEENT: Unchanged. NECK: No JVD. LUNGS: Clear anteriorly. CARDIOVASCULAR: S1, S2. Regular. ABDOMEN: Soft. EXTREMITIES: No edema. She continues to have these choreiform movements with her arms and her legs at times. LABORATORY DATA: Her CSF was really nondescript except for slightly elevated total protein. White blood cell count 8.8, hematocrit 34.7, and platelet count 251. PH 7.24, pCO2 of 40, pO2 of 83 on SIMV rate 16, tidal volume 450, PEEP 5, pressure support 10, FiO2 of 40%. Sodium 141, potassium 3.9, chloride 109, CO2 of 17, BUN 17, creatinine 0.9, glucose 120, albumin is 3.2. Her measured serum osmolar gap was not different from her calculated one. Chest x-ray shows no mass, effusion, or infiltrate. ASSESSMENT: 1. Acute respiratory failure, requiring mechanical ventilation. 2. Fairly severe metabolic acidosis, which appears to be mostly non-anion gap. This has not corrected much with bicarbonate administration yesterday. 3. History of underlying major depression. 4. History of oral ulcers. PLAN: Behcet disease is a rather rare diagnosis in people in this part of the [place]. The oral ulcers and her neuropsychiatric symptoms are really the only things that would point us in that direction. We are awaiting records from [facility] and [facility] as she had a similar admission in that facility recently. There appeared to be some component of underlying renal dysfunction leading to the acidosis. This makes me hesitant to proceed with extubation at this time until I am able to better cover up her acidosis. She has pending Neurology and ID consultations. In the end, this may all be major depression/psychosis type symptoms. If that is the case, then she will need to be started on some type of antidepressant therapy. Job ID: [id number]
[2020-08-21] MEDS: Sodium Bicarbonate 140 MEQ in Dextrose 5% in Water 1,000 ML IV SCH ×2 (09:05→23:49)
[2020-08-21 09:37] LABS: Vancomycin, Trough 22.7 ug/mL
[2020-08-21] MEDS: Vancomycin 1.5 GRAM/300 ML BAG 1.5 GM in Premix Bag 1 BAG IVPB SCH (10:04)
[2020-08-21] MEDS ORDERED: Pantoprazole 40 MG VIAL IVP SCH (11:00)
--- NOTE | 2020-08-21 13:12 | PDOC.NEUPN ---
- Subjective Encounter Date: 08/21/20 Subjective: Patient continues to be intubated and sedated - Objective Vital Signs & Weight: Vital Signs (12 hours) Temp Pulse Resp BP Pulse Ox 08/21/20 13:10 79 08/21/20 10:12 80 08/21/20 10:00 16 08/21/20 08:00 97.6 F 16 100 08/21/20 07:18 72 08/21/20 06:00 16 08/21/20 04:00 98 F 16 08/21/20 02:44 88 108/60 08/21/20 02:00 16 Weight Admit Weight 199 lb Weight 199 lb 11.821 oz Most Recent Monitor Data Heart Rate from ECG 94 NIBP 102/59 NIBP BP-Mean 73 Respiration from ECG 16 SpO2 99 I&O: 08/20/20 08/21/20 08/22/20 06:59 06:59 06:59 Intake Total 2061 3843 400 Output Total 660 2985 635 Balance 1401 858 -873 Result Diagrams: 08/21/20 05:50 08/21/20 05:50 Radiology Reviewed by me: Yes EKG Reviewed by me: Yes ROS - Review of Systems ROS unobtainable: due to endotracheal tube - Medication Medications: Active Medications Generic Name Dose Route Start Last Admin Trade Name Freq PRN Reason Stop Dose Admin Fentanyl Citrate 2,000 mcg/ 100 mls @ 0 mls/hr 08/19/20 19:30 08/21/20 04:18 Sodium Chloride IV 09/18/20 19:30 100 mls INF MARYJANE Administration Protocol Per Protocol Sodium Bicarbonate 140 meq/ 1,140 mls @ 75 mls/hr 08/21/20 08:15 08/21/20 09:05 Dextrose/Water IV 1,140 mls .[id number] MARYJANE Administration Levothyroxine Sodium 100 mcg 08/20/20 06:00 08/21/20 05:57 Levothyroxine Sodium 100 Mcg Tab PO 100 mcg 0600 MARYJANE Administration Lorazepam 2 mg 08/19/20 19:30 08/20/20 18:29 Lorazepam 2 Mg/Ml Vial SLOW IVP 09/18/20 19:30 2 mg Q1H PRN Administration Breakthrough agitation Methylprednisolone Sodium Succinate 60 mg 08/20/20 18:00 08/21/20 05:58 Methylprednisolone Sod Succ 40 Mg Vial IVP 60 mg Q6HR MARYJANE Administration Propofol 1,000 mg 08/19/20 19:30 08/21/20 12:27 Propofol 1,000 Mg/100 Ml Vial IV 09/18/20 19:30 1,000 mg INF PRN Administration TO ACHIEVE GOAL RASS Protocol Vecuronium [place] 10 mg 08/20/20 07:57 08/20/20 11:50 Vecuronium 10 Mg Vial IV 10 mg Q1H PRN Administration PARALYSIS - Exam General Appearance: ill appearing Eye: PERRL ENT: normocephalic atraumatic Neck: supple Respiratory: CTAB Cardiovascular: RRR Gastrointestinal: soft Extremities: no cyanosis Skin: normal turgor Neurological: no focal deficits, no new deficit (Intubated and sedated) Results - Labs Result Diagrams: 08/21/20 05:50 08/21/20 05:50 Lab results: WBC 8.8 thou/uL (4.8-10.8) 08/21/20 05:50 Hgb 12.2 g/dL (12.0-16.0) 08/21/20 05:50 Hct 34.7 % (36.0-47.0) L 08/21/20 05:50 MCV 94.0 fL (78.0-98.0) 08/21/20 05:50 Plt Count 251 thou/uL (130-400) 08/21/20 05:50 Neutrophils % 92.3 % (42.0-75.0) H 08/21/20 05:50 Band Neuts % (Manual) 15 % (5-11) H 08/19/20 15:40 ESR Westergren 3 mm/hr (Less than 30) 08/19/20 23:30 ABG pH 7.24 (7.35-7.45) L* 08/21/20 06:49 ABG pCO2 40.2 mmHg (35.0-45.0) 08/21/20 06:49 ABG pO2 83.2 mmHg (80.0-100.0) 08/21/20 06:49 VBG pCO2 29.9 mmHg (40.0-50.0) L 08/19/20 16:54 VBG pO2 133.0 mmHg (35.0-45.0) H 08/19/20 16:54 Sodium 141 mmol/L (136-145) 08/21/20 05:50 Potassium 3.9 mmol/L (3.5-5.1) 08/21/20 05:50 Chloride 109 mmol/L (98-107) H 08/21/20 05:50 Carbon Dioxide 17 mmol/L (22-29) L 08/21/20 05:50 BUN 17 mg/dL (9.8-20.1) 08/21/20 05:50 Creatinine 0.92 mg/dL (0.6-1.1) 08/21/20 05:50 Glucose 120 mg/dL (70-105) H 08/21/20 05:50 Lactic Acid 1.7 mmol/L (0.5-2.2) 08/20/20 00:29 Calcium 8.2 mg/dL (7.8-10.44) 08/21/20 05:50 Total Bilirubin 0.3 mg/dL (0.2-1.2) 08/21/20 05:50 AST 33 U/L (5-34) 08/21/20 05:50 ALT 34 U/L (8-55) 08/21/20 05:50 Alkaline Phosphatase 76 U/L (40-110) 08/21/20 05:50 Ammonia 37 umol/L (18-72) 08/19/20 15:40 Troponin I Less than 0.010 ng/mL (< 0.028) 08/19/20 15:40 C-Reactive Protein 15.73 mg/dL (= or < 0.5) H 08/19/20 23:30 Serum Total Protein 5.7 g/dL (6.0-8.3) L 08/21/20 05:50 Albumin 3.2 g/dL (3.5-5.0) L 08/21/20 05:50 Urine Ketones 20 mg/dL (Negative) A 08/19/20 15:40 Urine Blood Negative (Negative) 08/19/20 15:40 Urine Nitrite Negative (Negative) 08/19/20 15:40 Ur Leukocyte Esterase Negative Gena/uL (Negative) 08/19/20 15:40 Urine RBC 0-3 HPF (0-3) 08/19/20 15:40 Urine WBC 0-3 HPF (0-3) 08/19/20 15:40 Ur Squamous Epith Cells 0-3 HPF (0-3) 08/19/20 15:40 Urine Bacteria None Seen HPF (None Seen) 08/19/20 15:40 - EKG Interpretation EKG: Normal sinus rhythm - Radiology Interpretation MRI - head Additional Comment: MRI of the brain did not reveal acute intracranial pathology PN A/P (1) AMS (altered mental status) Code(s): R41.82 - ALTERED MENTAL STATUS, UNSPECIFIED Status: Acute (2) Depression Code(s): F32.9 - MAJOR DEPRESSIVE DISORDER, SINGLE EPISODE, UNSPECIFIED Status: Acute (3) Encephalopathy acute Code(s): G93.40 - ENCEPHALOPATHY, UNSPECIFIED Status: Acute (4) HTN (hypertension) Code(s): I10 - ESSENTIAL (PRIMARY) HYPERTENSION Status: Acute (5) Hypothyroidism Code(s): E03.9 - HYPOTHYROIDISM, UNSPECIFIED Status: Acute - Plan Daily Plan: PT/OT, speech therapy, DVT proph w/SCDs Ms. Spear is a 49-year-old female with history significant for depression and abnormal choreiform movements with oral ulcers and negative work-up as outpatient presented with altered mental status. Altered mental status seems to be multifactorial but no clear etiology is evident from the testing so far. Try to retrieve records from the [facility] about previous work-up. Neurochecks every 4 hours. MRI of the brain reviewed which did not show any evidence of acute intracranial pathology, bleed mass or evidence of demyelinating process EEG reviewed which was negative for seizure activity. LP results were essentially unremarkable but cultures and HSV pending. Continue medical management per primary team and pulmonology. Consider rheumatology input regarding Bechets or unexplained autoimmune disorder. Plan discussed with the nursing staff.
--- NOTE | 2020-08-21 15:44 | CON ---
DATE OF CONSULTATION: 08/21/2020 REASON FOR CONSULTATION: Evaluate possibility of DISTRICT ADMINISTRATIVE ASSISTANT infection in the setting of seizure activity. HISTORY OF PRESENT ILLNESS: A 49-year-old who was admitted to [facility] in [place] in April this year with a history of hypothyroidism, depression, and seizure, initially identified seven years before. Reportedly at that time, did not have any evaluation or treatment. In April 2008, she was seen in [facility], at that time was the [facility] and was found unresponsive with seizure activity and EMS brought her to [facility]. So, in April 2020, she was in [place], intubated in the field and had noticeable tonic-clonic activity and fever. She was seizing for about 8 to 10 minutes, the temperature was 104.3, and they did a spinal tap and started empiric antimicrobial therapy. She stayed pretty much the entire month at [facility] in [place] and had an extensive array of interventions and tests, consultation with multiple subspecialties to manage her complications. She had to be intubated and developed acute renal failure with a creatinine peaking at 8.6. She had rhabdomyolysis as the likely cause of acute renal failure. In addition, there was abnormal liver function with elevated INR, marked elevation of transaminases, in part probably related to the rhabdomyolysis, but in part felt to be due to possible anoxic liver injury. The CSF evaluation showed 23 wbc with pmn 30 lymphocytes 20. The extensive CSF evaluation for various DISTRICT ADMINISTRATIVE ASSISTANT pathogens including herpes simplex which DNA PCR was negative. The renal function improved slowly, but not much, by the discharge date it was around 7, but she was having normal urine output. She had a bone marrow, which was not remarkable. 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 She had multiple EEGs and did show just generalized slowing without epileptiform abnormalities noted. On discharge, the patient was basically asymptomatic and working with Physical Therapy and Occupational Therapy, walking in the hallways, and she was deemed to be stable to be discharged home. So, now she is admitted to [facility] in [place] with a history of likely recurrence of seizure activity and symptoms developed the day before admission, and apparently, always those episodes are associated with ulcers or blisters in the mouth. The only medication that she had been on was levothyroxine. Initial findings, heart rate 119, temperature 100.3, O2 saturation 95, and the exam remarkable for the patient able to move neck without stiffness. The respiratory examination was normal and heart exam was normal. Abdomen was soft. Initial findings included white cell count 35,000, hemoglobin 14, platelets 335, with 76% neutrophils, 15% bands. Initial pH 7.25, pCO2 of 36, PO2 of 236. Sodium 137, creatinine 1.12, lactic acid is 2.1. Bilirubin 1.8, AST 44. Ammonia was 37. TSH was 0.0464. Albumin 4.6, globulin 3.0. Troponin normal. Calcium was 9.7, glucose 79. Urinalysis was normal. The CSF with nucleated cells of 3, which is normal basically, glucose 55 and protein mildly elevated at 52. She had syphilis nonreactive. HIV is nonreactive. Influenza and SARS-CoV, nonreactive. Detected amphetamines, probably related to some nutritional product that she takes, but there is no previous utilization of illicit drugs. Currently, the patient is intubated. She is kind of moving around with voluntary movements, but does not follow commands. She is still sedated in the ventilator, has not had any evidence of seizure activity. Dr. Munroe performed an EEG, which did not show any epileptiform activity. MEDICAL HISTORY: Depression, hypothyroidism, recurrent seizure activity, mouth ulcers recurrent, extensive workup at [facility] in April with no evidence of infectious process involving the DISTRICT ADMINISTRATIVE ASSISTANT. This included PCR for most of the DISTRICT ADMINISTRATIVE ASSISTANT pathogens. She also had negative blood cultures and the only culture positive was from the urine, but that was probably just an innocent bystander not involved in the pathophysiology of the clinical disease. She had also a positive finding for one of the mutations associated with hemochromatosis, where she is homozygous and she does have a sister who has hemochromatosis. She had acute renal failure, which resolved after discharge, probably related to rhabdomyolysis. She had a bone marrow biopsy, which was not remarkable, and markedly elevated ferritin, which went down but not to normal levels, which was still elevated on discharge around 980. 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 ALLERGIES: NONE. MEDICATIONS: The only medication is levothyroxine. FHx: sister has been diagnosed with hemochromatosis PHYSICAL EXAMINATION: VITAL SIGNS: Here, she has been afebrile. BP 99/58, FiO2 of 40, pulse 79. O2 saturations are 100 at FiO2 of 40. SKIN: Shows there is peripheral IV access. No abnormalities. She has a Almanza catheter. HEENT: Orotracheal intubation. Pupils are constricted. Sclerae are white. Oral cavity with dry lips, few cracks in the left side. NECK: No jugular venous distention. LUNGS: Symmetric air entry. No crackles or wheezing. HEART: S1 and S2, regular rate. No S3 or S4. ABDOMEN: Soft. Not distended or tender. No ascites. No bladder distention. EXTREMITIES: No joint inflammatory activity noted. No edema. NEUROLOGIC: Seems to be moving all extremities, but she is confused or sedated. LABORATORY DATA: Latest labs, her white cell count is down to 8.8, hemoglobin 12, platelets 251, and 92% neutrophils. Bilirubin 1.8, AST 44. Microbiology, we have negative blood cultures, and thus far CSF culture negative. Reports include a brain MRI with white matter changes of unknown significance. ASSESSMENT: 1. Recurrent seizure activity for the past 7 to 8 years. 2. Extensive workup recently at [facility] in [place] for similar presentation, where she had a multispecialty evaluation, developed acute renal failure associated with rhabdomyolysis, probably due to seizure activity. Had acute fever illness probably also related to the protracted status epilepticus, and complete negative workup for various infectious etiologies including extensive DISTRICT ADMINISTRATIVE ASSISTANT PCR for almost all DISTRICT ADMINISTRATIVE ASSISTANT pathogens. She even had a bone marrow, which was not remarkable. She did have markedly elevated ferritin. 3. Family history of hemochromatosis with results on C282Y mutation showing homozygous status for ms Brown (results were not available to Fan at the time of discharge and I am not aware this has been yet addressed). 4. Abnormal liver function tests. DISCUSSION: Differential diagnosis includes hemochromatosis associated with neurologic manifestation, specifically movement disorder associated with hemochromatosis and seizures. DISTRICT ADMINISTRATIVE ASSISTANT infection is pretty much ruled out. Systemic infection is unlikely. Vasculitis or other auto-immune process also unlikely. Neurological manifestations with movement disorders have been described in hereditary hemochromatosis with a few reports published. The MRI findings reported in ms Brown's case were found in the patients with hemochromatosis that present with movement disorder. The pathophysiology leading to this abnormality is not well explained and unfortunately, treatment of iron overload did not seem to lead to improvement in DISTRICT ADMINISTRATIVE ASSISTANT manifs. Chronic anti-seizure treatment will be required from here on. She will need to be referred back to [facility] in [place] to complete the work up for hemochromatosis and start treatment. Job ID: [id number] MTDD
[2020-08-21] MEDS ORDERED: Vancomycin HCl 1.25 GM in Sodium Chloride 0.9% 250 ML 250 ML IVPB SCH (22:00)
[2020-08-22] MEDS: Propofol 1,000 MG/100 ML VIAL IV PRN ×6 (00:12→20:56)
[2020-08-22 05:07] LABS: #Lymphocytes 0.6 thou/uL (1.20-3.40); #Monocytes 0.2 thou/uL (0.11-0.59); #Neutrophils 9.7 thou/uL (1.40-6.50); %Eosinophils 0.1 % (0.0-10.0); %Lymphocytes 6.1 % (21.0-51.0); %Monocytes 2.2 % (0.0-10.0); %Neutrophils 91.7 % (42.0-75.0); Hemoglobin 11.9 g/dL (12.0-16.0); Mean Corpuscular HGB CONC 35.9 g/dL (32.0-36.0); Mean Corpuscular Hemoglobin 33.6 pg (27.0-31.0); Mean Corpuscular Volume 93.8 fL (78.0-98.0); Mean Platelet Volume 7.9 fL (7.4-10.4); Platelet Count 259 thou/uL (130-400); RBC Distribution Width 10.7 % (11.5-14.5); Red Blood Cell (RBC) Count 3.54 mill/uL (4.20-5.40); White Blood Cell (WBC) Count 10.5 thou/uL (4.8-10.8)
[2020-08-22] MEDS: Levothyroxine Sodium 100 MCG TAB PO SCH (05:22)
[2020-08-22] MEDS: methylPREDNISolone Sod Succ 40 MG VIAL IVP SCH ×3 (05:23→18:29)
[2020-08-22] MEDS: fentaNYL Citrate/PF 2,000 MCG in Sodium Chloride 0.9% 60 ML IV SCH ×2 (05:24→17:57)
[2020-08-22 05:45] LABS: ALT (SGPT) 30 U/L (8-55); AST (SGOT) 38 U/L (5-34); Albumin 3.3 g/dL (3.5-5.0); Alkaline Phosphatase 313 U/L (40-110); Anion Gap 10 mmol/L (10-20); BUN (Urea Nitrogen) 20 mg/dL (9.8-20.1); Bilirubin, Total 0.3 mg/dL (0.2-1.2); Calc. Creatinine Clearance 120 mL/min (70-130); Calcium 8.2 mg/dL (7.8-10.44); Carbon Dioxide 29 mmol/L (22-29); Chloride 104 mmol/L (98-107); Globulin 2.9 g/dL (2.4-3.5); Glucose 231 mg/dL (70-105); Potassium 3.3 mmol/L (3.5-5.1); Protein, Total 6.2 g/dL (6.0-8.3); Sodium 140 mmol/L (136-145)
[2020-08-22] MEDS ORDERED: Potassium Chloride 40 MEQ in Premix Bag 1 BAG IVPB SCH (06:30)
--- NOTE | 2020-08-22 06:41 | PDOC.FM ---
- Subjective Subjective: pt somewhat responsive to verbal stimuli, no acute distress, no choreiform movements noted - Objective Vital Signs & Weight: Vital Signs (12 hours) Temp Pulse Resp BP Pulse Ox 08/22/20 06:00 16 08/22/20 04:00 98.0 F 16 08/22/20 02:38 55 L 103/60 08/22/20 02:00 16 08/22/20 00:00 97.9 F 16 08/21/20 22:08 60 97/52 L 08/21/20 22:00 16 08/21/20 20:00 98.5 F 16 08/21/20 19:45 100 Weight Admit Weight 90.265 kg Weight 90.6 kg Most Recent Monitor Data Heart Rate from ECG 76 NIBP 104/62 NIBP BP-Mean 76 Respiration from ECG 17 SpO2 99 I&O: 08/20/20 08/21/20 08/22/20 06:59 06:59 06:59 Intake Total 2061 3843 3914.3 Output Total 660 2985 1900 Balance 5618 830 8324.3 Result Diagrams: 08/22/20 04:07 08/22/20 04:07 Phys Exam - Physical Examination Constitutional: NAD HEENT: moist MMs Neck: no JVD Respiratory: clear to auscultation bilateral Cardiovascular: RRR, no significant murmur Gastrointestinal: soft, no distention Musculoskeletal: no edema, pulses present Neurological: moves all 4 limbs Skin: no rash Dx/Plan (1) AMS (altered mental status) Code(s): R41.82 - ALTERED MENTAL STATUS, UNSPECIFIED Status: Acute (2) Depression Code(s): F32.9 - MAJOR DEPRESSIVE DISORDER, SINGLE EPISODE, UNSPECIFIED Status: Acute (3) Encephalopathy acute Code(s): G93.40 - ENCEPHALOPATHY, UNSPECIFIED Status: Acute (4) HTN (hypertension) Code(s): I10 - ESSENTIAL (PRIMARY) HYPERTENSION Status: Acute (5) Hypothyroidism Code(s): E03.9 - HYPOTHYROIDISM, UNSPECIFIED Status: Acute - Plan Plan: Encephalopathy with choreiform movements - infectious and rheumatologic causes unlikely at this point. Consider hemachromatosis with neuro manifestations - Consult neurology, appreciate recommendations. EEG showed mild to moderate generalized nonspecific cerebral dysfunction. - Positive drug screen for amphetamines - LP cultures and HSV - MRI negative for acute intracranial pathology. hemachromatosis - positive test from outside facility Non-anion gap metabolic acidosis - aware, bicarb drip started yesterday - consider renal causes, further eval today SIRS - Tachycardic, febrile, tachypneic on admission - s/p fluids and antibiotics Depression - Currently not on any medications. Hypothyroidism - Aware, continue levothyroxine but decrease home dose to 100mcg daily - TSH was low, T4 was high on admission labs HTN - aware, not on home meds - Hydralazine PRN Dispo:continue resp support, attempt to correct acidosis. Diet: Tube feeds Fluids: SL DVT ppx: Lovenox Code: FULL PCP: Dr. Tang in [facility] Addendum - Attending - Attending Attestation Date/Time: 08/22/20 [id number] I personally evaluated the patient and discussed the management with Dr. Carrasco. I agree with the History, Examination, Assessment and Plan documented above with any addition or exceptions noted below. Patient stable. Continues on ventilator per Pulm until acid base status improved, which it does appear to be this morning. Based on ID review of outside records which we unfortunately do not have access to, it appears the patient may have hemachromatosis which could be the cause of her presentation. Hopeful to extubate today or tomorrow, and further mgmt pending clinical course. At the time, this does not appear to be infectious, inflammatory, or toxic in nature.
[2020-08-22 06:46] LABS: Actual Bicarbonate (HCO3a) 28.4 mEq/L (22-28); Base Excess (BEa) 3.6 mEq/L (-2.0 to +3.0); CO2 Tension 43.4 mmHg (35.0-45.0); Calcium, Ionized (arterial) 1.14 mmol/L (1.12-1.30); Carboxyhemoglobin (COHb) 0.3 gm% (0.0-3.0); Hemoglobin (Hb) 14.1 g/dL (12.0-16.0); O2 Tension (PaO2), arterial 94.6 mmHg (80.0-100.0); Potassium - ABG Lab 3.36 mmol/L (3.70-5.30); pH, Arterial 7.43 (7.35-7.45)
[2020-08-22] MEDS ORDERED: Potassium Chloride 40 MEQ in Sodium Chloride 0.9% 250 ML 250 ML IVPB SCH (07:00)
[2020-08-22 07:28] LABS: Puncture Site RRA
[2020-08-22] MEDS ORDERED: HumaLOG 300 UNITS/3 ML VIAL SC PRN (07:43)
[2020-08-22] MEDS ORDERED: Dextrose 50% Abboject 50 ML SYRINGE SLOW IVP PRN (07:43)
[2020-08-22] MEDS ORDERED: Dextrose 5% in Water 1,000 ML IV PRN (07:43)
--- NOTE | 2020-08-22 09:03 | RAD ---
PORTABLE CHEST 1 VIEW: Date: 08/22/2020 Time: 0606 hours HISTORY: Pneumonia, respiratory failure. FINDINGS/IMPRESSION: Comparison made with exam of previous day. Endotracheal and nasogastric tubes remain in place. Patchy opacities in the lower lungs are again see n. No pneumothoraces or large effusions are identified. POS: OFF
[2020-08-22] MEDS: Pantoprazole 40 MG VIAL IVP SCH (09:20)
[2020-08-22 12:14] LABS: Iron 65 ug/dL (50-170); Iron Binding Capacity, Total 158 mcg/dL (265-497)
[2020-08-22] MEDS: HumaLOG 300 UNITS/3 ML VIAL SC PRN ×2 (12:15→18:33)
[2020-08-22] MEDS: Sodium Bicarbonate 140 MEQ in Dextrose 5% in Water 1,000 ML IV SCH (13:04)
--- NOTE | 2020-08-22 13:17 | PDOC.EEG ---
Neurology EEG Report - Report Report: This EEG was performed using 24 channel [employer]ell[employer]oh video digital EEG machine with 24 disc electrodes. This was an extended 2-hour 7 minutes of inpatient video EEG recording. Digital analysis of the EEG was done for Chano and seizure detection which revealed no abnormalities. Background: The posterior background rhythm is not observed. Hyperventilation: Not performed. Photic stimulation. Bioccipital symmetric response not seen with photic stimulation. Sleep: No stage change was observed Spells: Choreiform movements observed on the video with no abnormal EEG correlate. EEG diagnosis: Generalized irregular theta activity seen during the recording. Nonsustained posterior background rhythm. Clinical interpretation: This EEG is consistent with moderate generalized nonspecific cerebral dysfunction.The spells characterized by choreiform movements were not associated with abnormal EEG correlate.
--- NOTE | 2020-08-22 16:10 | PRG ---
DATE OF SERVICE: 08/22/2020 SUBJECTIVE: The patient continues to receive ventilatory support with settings of rate of 16, tidal volume 450, PEEP of 5, and FiO2 of 40%. She is sedated. It is a very challenging case with extensive evaluation done at [facility] within the past few months, which did not demonstrate a confirmed diagnosis. At this point, the leading suspicion would be for a collagen vascular or autoimmune disorder such as Behcet's given her oral ulcerations, although serology is not confirmatory. PHYSICAL EXAMINATION: VITAL SIGNS: Blood pressure 109/65, heart rate is 61, and saturation is 100% on ventilator settings as noted above. She is afebrile. GENERAL: Sedated. HEENT: I cannot evaluate her oropharynx. NECK: She has no adenopathy or JVD. LUNGS: Show bronchial breath sounds without wheezing or rale. She is assisting the ventilator. HEART: Regular rate and rhythm. There is no gallop. She has a very quiet systolic murmur. ABDOMEN: Soft. There is no organomegaly. EXTREMITIES: Show no edema. She has been noted to have seizures earlier this admission, but not noted now. There has also been described as choreiform movements, again also not seen by me. LABORATORY DATA: White count today 10,500, hemoglobin is 11.9 with hematocrit 33.2, and platelet count 259,000. Differential is notable only for mild reduction in lymphocytes to 6%. Chemistry panel includes sodium 140, potassium 3.3, chloride 104, CO2 is 29, BUN 20, creatinine 0.8, and glucose is 230. Her serum iron is normal, TIBC is low at 158, and saturation 41%. Liver tests including ALT and AST are normal, although alkaline phosphatase is elevated over 300. All of her cultures are negative. An EEG shows mild background cerebral dysfunction without evidence of seizure activity. Her chest x-ray has been reviewed by me and demonstrates heart is at the upper limits of normal. Lines and tubes are appropriate. There is a very small area of consolidation in the medial right base. There is no effusion, mass, or pneumothorax. IMPRESSION: Altered mental status of unknown cause with recent extensive evaluation. At this point, the leading candidates would seem to be an autoimmune or collagen vascular disorder, although laboratory is nonconfirmatory. PLAN: We will continue current therapies and hopefully can begin to wean her fairly briskly. I agree with the current empiric antibiotics, although negative cultures would suggest that we could probably discontinue them. She is on steroid therapy. Consideration of evaluation at the [facility] is suggested if a diagnosis cannot be confirmed and she is stable at some point for outpatient assessment. Critical care, 33 minutes. Job ID: [id number]
--- NOTE | 2020-08-22 16:30 | PDOC.NEUPN ---
- Subjective Encounter Date: 08/22/20 Subjective: Ms. Spear continues to be intubated and sedated. Choreiform movements of the extremities noted. EEG was repeated which did not reveal any significant which did not reveal any seizure activity - Objective Vital Signs & Weight: Vital Signs (12 hours) Temp Pulse Resp Pulse Ox 08/22/20 16:23 57 L 08/22/20 14:00 16 08/22/20 13:07 66 08/22/20 12:00 99.1 F 16 08/22/20 11:04 65 08/22/20 10:00 16 08/22/20 09:00 98.2 F 08/22/20 08:00 16 100 08/22/20 07:28 61 08/22/20 06:00 16 Weight Admit Weight 199 lb Weight 199 lb 11.821 oz Most Recent Monitor Data Heart Rate from ECG 61 NIBP 109/65 NIBP BP-Mean 79 Respiration from ECG 16 SpO2 100 I&O: 08/21/20 08/22/20 08/23/20 06:59 06:59 06:59 Intake Total 3843 3914.3 Output Total 2985 1900 650 Balance 858 2014.3 -650 Result Diagrams: 08/22/20 04:07 08/22/20 04:07 Additional Labs: Accuchecks 08/22/20 11:57 POC Glucose 158 H Radiology Reviewed by me: Yes EKG Reviewed by me: Yes ROS - Review of Systems ROS unobtainable: due to endotracheal tube - Medication Medications: Active Medications Generic Name Dose Route Start Last Admin Trade Name Freq PRN Reason Stop Dose Admin Fentanyl Citrate 2,000 mcg/ 100 mls @ 0 mls/hr 08/19/20 19:30 08/22/20 05:24 Sodium Chloride IV 09/18/20 19:30 100 mls INF MARYJANE Administration Protocol Per Protocol Sodium Bicarbonate 140 meq/ 1,140 mls @ 75 mls/hr 08/21/20 08:15 08/22/20 13:04 Dextrose/Water IV 1,140 mls .[id number] MARYJANE Administration Insulin Human Lispro 0 units 08/22/20 07:43 08/22/20 12:15 Humalog 300 Units/3 Ml Vial SC 2 unit .MILD SLIDING SCALE PRN Administration Mild Correctional Scale Levothyroxine Sodium 100 mcg 08/20/20 06:00 08/22/20 05:22 Levothyroxine Sodium 100 Mcg Tab PO 100 mcg 0600 MARYJANE Administration Lorazepam 2 mg 08/19/20 19:30 08/20/20 18:29 Lorazepam 2 Mg/Ml Vial SLOW IVP 09/18/20 19:30 2 mg Q1H PRN Administration Breakthrough agitation Methylprednisolone Sodium Succinate 60 mg 08/20/20 18:00 08/22/20 11:43 Methylprednisolone Sod Succ 40 Mg Vial IVP 60 mg Q6HR MARYJANE Administration Pantoprazole Sodium 40 mg 08/22/20 09:00 08/22/20 09:20 Pantoprazole 40 Mg Vial IVP 40 mg DAILY MARYJANE Administration Propofol 1,000 mg 08/19/20 19:30 08/22/20 11:43 Propofol 1,000 Mg/100 Ml Vial IV 09/18/20 19:30 1,000 mg INF PRN Administration TO ACHIEVE GOAL RASS Protocol Vecuronium Lolita 10 mg 08/20/20 07:57 08/20/20 11:50 Vecuronium 10 Mg Vial IV 10 mg Q1H PRN Administration PARALYSIS - Exam General Appearance: NAD Eye: PERRL ENT: normocephalic atraumatic Neck: supple Respiratory: CTAB Cardiovascular: RRR Gastrointestinal: soft Extremities: no cyanosis Skin: normal turgor Neurological: no new deficit Musculoskeletal: normal tone, no muscle wasting PSYCH: not oriented (Sedated and intubated) Results - Labs Result Diagrams: 08/22/20 04:07 08/22/20 04:07 Lab results: WBC 10.5 thou/uL (4.8-10.8) 08/22/20 04:07 Hgb 11.9 g/dL (12.0-16.0) L 08/22/20 04:07 Hct 33.2 % (36.0-47.0) L 08/22/20 04:07 MCV 93.8 fL (78.0-98.0) 08/22/20 04:07 Plt Count 259 thou/uL (130-400) 08/22/20 04:07 Neutrophils % 91.7 % (42.0-75.0) H 08/22/20 04:07 Band Neuts % (Manual) 15 % (5-11) H 08/19/20 15:40 ESR Westergren 3 mm/hr (Less than 30) 08/19/20 23:30 ABG pH 7.43 (7.35-7.45) 08/22/20 06:40 ABG pCO2 43.4 mmHg (35.0-45.0) 08/22/20 06:40 ABG pO2 94.6 mmHg (80.0-100.0) 08/22/20 06:40 VBG pCO2 29.9 mmHg (40.0-50.0) L 08/19/20 16:54 VBG pO2 133.0 mmHg (35.0-45.0) H 08/19/20 16:54 Sodium 140 mmol/L (136-145) 08/22/20 04:07 Potassium 3.3 mmol/L (3.5-5.1) L 08/22/20 04:07 Chloride 104 mmol/L (98-107) 08/22/20 04:07 Carbon Dioxide 29 mmol/L (22-29) 08/22/20 04:07 BUN 20 mg/dL (9.8-20.1) 08/22/20 04:07 Creatinine 0.79 mg/dL (0.6-1.1) 08/22/20 04:07 Glucose 231 mg/dL (70-105) H 08/22/20 04:07 Lactic Acid 1.7 mmol/L (0.5-2.2) 08/20/20 00:29 Calcium 8.2 mg/dL (7.8-10.44) 08/22/20 04:07 Total Bilirubin 0.3 mg/dL (0.2-1.2) 08/22/20 04:07 AST 38 U/L (5-34) H 08/22/20 04:07 ALT 30 U/L (8-55) 08/22/20 04:07 Alkaline Phosphatase 313 U/L (40-110) H 08/22/20 04:07 Ammonia 37 umol/L (18-72) 08/19/20 15:40 Troponin I Less than 0.010 ng/mL (< 0.028) 08/19/20 15:40 C-Reactive Protein 15.73 mg/dL (= or < 0.5) H 08/19/20 23:30 Serum Total Protein 6.2 g/dL (6.0-8.3) 08/22/20 04:07 Albumin 3.3 g/dL (3.5-5.0) L 08/22/20 04:07 Urine Ketones 20 mg/dL (Negative) A 08/19/20 15:40 Urine Blood Negative (Negative) 08/19/20 15:40 Urine Nitrite Negative (Negative) 08/19/20 15:40 Ur Leukocyte Esterase Negative Gena/uL (Negative) 08/19/20 15:40 Urine RBC 0-3 HPF (0-3) 08/19/20 15:40 Urine WBC 0-3 HPF (0-3) 08/19/20 15:40 Ur Squamous Epith Cells 0-3 HPF (0-3) 08/19/20 15:40 Urine Bacteria None Seen HPF (None Seen) 08/19/20 15:40 - Radiology Interpretation MRI - head Additional Comment: MRI of the brain did not reveal acute intracranial pathology. PN A/P (1) AMS (altered mental status) Code(s): R41.82 - ALTERED MENTAL STATUS, UNSPECIFIED Status: Acute Qualifiers: Altered mental status type: delirium Qualified Code(s): R41.0 - Disorientation, unspecified (2) Depression Code(s): F32.9 - MAJOR DEPRESSIVE DISORDER, SINGLE EPISODE, UNSPECIFIED Status: Acute (3) Encephalopathy acute Code(s): G93.40 - ENCEPHALOPATHY, UNSPECIFIED Status: Acute (4) HTN (hypertension) Code(s): I10 - ESSENTIAL (PRIMARY) HYPERTENSION Status: Acute (5) Hypothyroidism Code(s): E03.9 - HYPOTHYROIDISM, UNSPECIFIED Status: Acute - Plan Daily Plan: plan discussed w/ family (Sister at bedside), PT/OT, speech therapy, DVT proph w/SCDs Ms. Spear is a 49-year-old female with history significant for depression and abnormal choreiform movements with oral ulcers and extensive work-up at [facility] presented with altered mental status. Altered mental status seems to be multifactorial but no clear etiology is evident from the testing so far. Awaiting records from the [facility] about previous work-up. Dr. Vasquez note reviewed which showed some insight into the work-up at [facility] but have not seen the actual records. No clear history of autoimmune or infectious disease per records. This was a concern about hemochromatosis neurological manifestations since sister has been hemochromatosis. Sister was at bedside today. Had an extensive discussion with the sister and she confirmed that she has at that the patient has not been diagnosed with hemochromatosis. She has episodes of altered mental status with abnormal asynchronous movements whenever she develops mouth ulcers associated with extreme pain. She was recently intubated and sedated at [facility] and extensive testing was done and she was discharged home on a seizure medication which she stopped taking after 2 weeks. Repeat EEG was performed which did not reveal any seizure activity. The Cortifoam movements were also captured on the video EEG recording which did not receive revealed any ictal electrographic seizure correlate. However, propofol can mask the EEG and since she was diagnosed with seizure disorder at [facility] and was discharged on seizure medication per sister we will start a trial of Keppra 500 mg IV every 12 hours for seizure prophylaxis. Will await further records from [facility]. Neurochecks every 4 hours. MRI of the brain reviewed which did not show any evidence of acute intracranial pathology, bleed mass or evidence of demyelinating process EEG reviewed which was negative for seizure activity. LP results were essentially unremarkable. ID did not feel the need of any infec tious disease work-up at this point Continue medical management per primary team and pulmonology. Plan discussed with the nursing staff and also with the sister at the bedside.
[2020-08-22] MEDS: levETIRAcetam in NS 500 MG in Premix Bag 1 BAG IVPB SCH (20:03)
[2020-08-23] MEDS: Propofol 1,000 MG/100 ML VIAL IV PRN ×6 (00:34→20:07)
[2020-08-23] MEDS: methylPREDNISolone Sod Succ 40 MG VIAL IVP SCH ×5 (00:34→23:18)
[2020-08-23 04:34] LABS: #Lymphocytes 0.6 thou/uL (1.20-3.40); #Monocytes 0.3 thou/uL (0.11-0.59); #Neutrophils 8.3 thou/uL (1.40-6.50); %Eosinophils 0.4 % (0.0-10.0); %Lymphocytes 6.6 % (21.0-51.0); %Neutrophils 90.1 % (42.0-75.0); Hemoglobin 11.4 g/dL (12.0-16.0); Mean Corpuscular HGB CONC 35.2 g/dL (32.0-36.0); Mean Corpuscular Hemoglobin 33.3 pg (27.0-31.0); Mean Corpuscular Volume 94.7 fL (78.0-98.0); Mean Platelet Volume 8.1 fL (7.4-10.4); Platelet Count 236 thou/uL (130-400); RBC Distribution Width 10.8 % (11.5-14.5); Red Blood Cell (RBC) Count 3.43 mill/uL (4.20-5.40); White Blood Cell (WBC) Count 9.2 thou/uL (4.8-10.8)
[2020-08-23 04:55] LABS: ALT (SGPT) 23 U/L (8-55); AST (SGOT) 15 U/L (5-34); Albumin 3.3 g/dL (3.5-5.0); Alkaline Phosphatase 63 U/L (40-110); Anion Gap 13 mmol/L (10-20); BUN (Urea Nitrogen) 23 mg/dL (9.8-20.1); Bilirubin, Total 0.3 mg/dL (0.2-1.2); Calc. Creatinine Clearance 125 mL/min (70-130); Calcium 8.1 mg/dL (7.8-10.44); Carbon Dioxide 32 mmol/L (22-29); Chloride 103 mmol/L (98-107); Globulin 2.3 g/dL (2.4-3.5); Glucose 194 mg/dL (70-105); Potassium 3.8 mmol/L (3.5-5.1); Protein, Total 5.6 g/dL (6.0-8.3); Sodium 144 mmol/L (136-145)
[2020-08-23] MEDS: Levothyroxine Sodium 100 MCG TAB PO SCH (05:38)
[2020-08-23] MEDS: fentaNYL Citrate/PF 2,000 MCG in Sodium Chloride 0.9% 60 ML IV SCH ×2 (06:09→20:07)
[2020-08-23] MEDS: HumaLOG 300 UNITS/3 ML VIAL SC PRN ×2 (06:10→18:03)
--- NOTE | 2020-08-23 06:29 | PDOC.FM ---
- Subjective Subjective: pt intubated and sedated, less agitation overnight. - Objective Vital Signs & Weight: Vital Signs (12 hours) Temp Pulse Resp BP Pulse Ox 08/23/20 06:00 16 08/23/20 04:00 99.3 F 16 08/23/20 02:22 76 144/78 H 08/23/20 02:00 16 08/23/20 00:00 99.0 F 16 08/22/20 22:13 55 L 110/62 08/22/20 22:00 16 08/22/20 20:00 99.5 F 16 08/22/20 19:44 99 08/22/20 18:54 84 129/67 Weight Admit Weight 90.265 kg Weight 93.3 kg Most Recent Monitor Data Heart Rate from ECG 58 NIBP 113/62 NIBP BP-Mean 79 Respiration from ECG 16 SpO2 100 I&O: 08/21/20 08/22/20 08/23/20 06:59 06:59 06:59 Intake Total 3843 3914.3 3926.4 Output Total 2985 1900 2200 Balance 858 2014.3 1726.4 Result Diagrams: 08/23/20 03:30 08/23/20 03:30 Phys Exam - Physical Examination Constitutional: NAD HEENT: moist MMs Neck: no JVD Respiratory: clear to auscultation bilateral Cardiovascular: RRR Gastrointestinal: soft Musculoskeletal: pulses present, edema present Skin: no rash Dx/Plan (1) AMS (altered mental status) Code(s): R41.82 - ALTERED MENTAL STATUS, UNSPECIFIED Status: Acute Qualifiers: Altered mental status type: delirium Qualified Code(s): R41.0 - Disorientation, unspecified (2) Depression Code(s): F32.9 - MAJOR DEPRESSIVE DISORDER, SINGLE EPISODE, UNSPECIFIED Status: Acute (3) Encephalopathy acute Code(s): G93.40 - ENCEPHALOPATHY, UNSPECIFIED Status: Acute (4) HTN (hypertension) Code(s): I10 - ESSENTIAL (PRIMARY) HYPERTENSION Status: Acute (5) Hypothyroidism Code(s): E03.9 - HYPOTHYROIDISM, UNSPECIFIED Status: Acute - Plan Plan: Encephalopathy with choreiform movements - infectious and rheumatologic causes unlikely at this point. hemachromatosis unlikely with low ferritin, consider bechets - Consult neurology, appreciate recommendations. EEG showed mild to moderate generalized nonspecific cerebral dysfunction. - Positive drug screen for amphetamines- likely phentermine - LP cultures and HSV - MRI negative for acute intracranial pathology. 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 Hypothyroidism - Aware, continue levothyroxine but decrease home dose to 100mcg daily - TSH was low, T4 was high on admission labs HTN - aware, not on home meds - Hydralazine PRN - fluid +, give lasix Dispo:evaluate for extubation today Diet: Tube feeds Fluids: SL DVT ppx: Lovenox Code: FULL PCP: Dr. Tang in [place], Addendum - Attending - Attending Attestation Date/Time: 08/23/20 0372 I personally evaluated the patient and discussed the management with Dr. Carrasco. I agree with the History, Examination, Assessment and Plan documented above with any addition or exceptions noted below. Patient overall stable, some continued movement on sedation, but less with Keppra. Neuro and Pulm on board. ID suspects hemachromatosis complications. Her Ferritin and iron levels are significantly lower than I would anticipate with this disease process. We are still waiting on the full records from [facility]. Wean vent as tolerated. I suspect we can d/c the Bicarb drip as her acid base disturbance is currently corrected, though will need to ensure it remains that way once the medication is stopped.
[2020-08-23 06:37] LABS: Actual Bicarbonate (HCO3a) 32.2 mEq/L (22-28); Base Excess (BEa) 7.8 mEq/L (-2.0 to +3.0); CO2 Tension 44.4 mmHg (35.0-45.0); Calcium, Ionized (arterial) 1.12 mmol/L (1.12-1.30); Hemoglobin (Hb) 12.1 g/dL (12.0-16.0); O2 Tension (PaO2), arterial 74.2 mmHg (80.0-100.0); Potassium - ABG Lab 3.85 mmol/L (3.70-5.30); pH, Arterial 7.48 (7.35-7.45)
[2020-08-23 06:47] LABS: Puncture Site RRA
[2020-08-23] MEDS ORDERED: Furosemide 20 MG/2 ML VIAL SLOW IVP SCH (08:30)
--- NOTE | 2020-08-23 09:31 | RAD ---
PORTABLE CHEST 1 VIEW: Date: 08/23/2020 Time: 0442 hours HISTORY: Pneumonia. COMPARISON: Previous day. FINDINGS/IMPRESSION: No significant interval change is seen since the previous day's exam. POS: OFF
[2020-08-23] MEDS: Lorazepam 2 MG/ML VIAL SLOW IVP PRN ×2 (09:59→20:38)
[2020-08-23] MEDS: Pantoprazole 40 MG VIAL IVP SCH (10:00)
[2020-08-23] MEDS: levETIRAcetam in NS 500 MG in Premix Bag 1 BAG IVPB SCH ×2 (10:00→20:07)
[2020-08-23] MEDS: Sodium Bicarbonate 140 MEQ in Dextrose 5% in Water 1,000 ML IV SCH (11:32)
--- NOTE | 2020-08-23 16:13 | PRG ---
DATE OF SERVICE: 08/23/2020 SUBJECTIVE: Ms. Brown continues to receive ventilatory support with a rate of 12, tidal volume 450, PEEP of 5, and FiO2 of 40%. She is not responding appropriate to verbal stimuli. PHYSICAL EXAMINATION: VITAL SIGNS: Blood pressure is 90/49, heart rate is 56, saturation 100%. NEUROLOGIC: She is not responsive to verbal stimuli and only minimally responsive to pain. NECK: There is no JVD. LUNGS: Show bronchial breath sounds. HEART: Regular rate and rhythm. There is no murmur. There is no gallop or rub. ABDOMEN: Soft. EXTREMITIES: She has no edema. There is no cyanosis or clubbing. LABORATORY DATA: White count 9200, hemoglobin is 11.4 with hematocrit of 32.5, and platelet count 236,000. Chemistries include sodium 144, potassium 3.8, chloride 103, CO2 is 32, BUN 23, and creatinine 0.7, blood sugars running about 150. Blood gas includes pH 7.48, CO2 of 44, PO2 of 74, and bicarbonate 32. Chest x-ray reviewed by me, demonstrates faint area of consolidation in the right base, does not obscure the heart border, does not really obscure the diaphragm. It is probably in the lower lung. There is no effusion or pneumothorax. Lines and tubes are in good position. IMPRESSION: Respiratory failure in a very complicated patient with what sounds like an autoimmune or collagen vascular disorder. The x-ray does not necessarily explain her persistent ventilator dependency. I am concerned of course about her neurologic status. 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 PLAN: I have reduced the rate from 12 to 10 and reduced the rate from 45% to 35%. We will re-evaluate later today and see if there is further effort that we can make in that regard. I am concerned about her persistent altered mentation. Critical care 35 minutes. Job ID: [id number]
[2020-08-24] MEDS: Propofol 1,000 MG/100 ML VIAL IV PRN ×2 (01:48→05:09)
[2020-08-24] MEDS: methylPREDNISolone Sod Succ 40 MG VIAL IVP SCH ×4 (05:09→23:54)
[2020-08-24] MEDS: Levothyroxine Sodium 100 MCG TAB PO SCH (05:10)
[2020-08-24] MEDS: HumaLOG 300 UNITS/3 ML VIAL SC PRN (05:16)
[2020-08-24 06:01] LABS: #Eosinphils 0.1 thou/uL (0.0-0.7); #Monocytes 0.4 thou/uL (0.11-0.59); #Neutrophils 8.2 thou/uL (1.40-6.50); %Basophils 0.3 % (0.0-1.0); %Eosinophils 1.2 % (0.0-10.0); %Lymphocytes 10.1 % (21.0-51.0); %Monocytes 3.9 % (0.0-10.0); %Neutrophils 84.5 % (42.0-75.0); Hemoglobin 12.3 g/dL (12.0-16.0); Mean Corpuscular HGB CONC 35.1 g/dL (32.0-36.0); Mean Corpuscular Hemoglobin 33.5 pg (27.0-31.0); Mean Corpuscular Volume 95.6 fL (78.0-98.0); Mean Platelet Volume 7.7 fL (7.4-10.4); Platelet Count 282 thou/uL (130-400); RBC Distribution Width 10.5 % (11.5-14.5); Red Blood Cell (RBC) Count 3.67 mill/uL (4.20-5.40); White Blood Cell (WBC) Count 9.7 thou/uL (4.8-10.8)
[2020-08-24 06:21] LABS: ALT (SGPT) 26 U/L (8-55); AST (SGOT) 19 U/L (5-34); Albumin 3.7 g/dL (3.5-5.0); Alkaline Phosphatase 65 U/L (40-110); Anion Gap 11 mmol/L (10-20); BUN (Urea Nitrogen) 29 mg/dL (9.8-20.1); Bilirubin, Total 0.3 mg/dL (0.2-1.2); Calc. Creatinine Clearance 124 mL/min (70-130); Calcium 8.4 mg/dL (7.8-10.44); Carbon Dioxide 32 mmol/L (22-29); Chloride 102 mmol/L (98-107); Globulin 2.4 g/dL (2.4-3.5); Glucose 158 mg/dL (70-105); Protein, Total 6.1 g/dL (6.0-8.3); Sodium 141 mmol/L (136-145)
--- NOTE | 2020-08-24 07:22 | PDOC.FM ---
- Subjective Subjective: Pt was just extubated this morning and taken off of sedation. Opens eyes to voice but otherwise not responsive and not following commands. No acute events overnight. - Objective Vital Signs & Weight: Vital Signs (12 hours) Temp Pulse Resp BP Pulse Ox 08/24/20 05:54 16 08/24/20 04:00 98.7 F 16 08/24/20 02:19 65 156/86 H 08/24/20 02:00 16 08/23/20 23:56 99.6 F 13 08/23/20 22:03 84 133/63 08/23/20 22:00 13 08/23/20 20:00 99.8 F H 12 100 Weight Admit Weight 90.265 kg Weight 93.3 kg Most Recent Monitor Data Heart Rate from ECG 64 NIBP 139/83 NIBP BP-Mean 101 Respiration from ECG 13 SpO2 100 I&O: 08/23/20 08/24/20 08/25/20 06:59 06:59 06:59 Intake Total 3926.4 2425.2 Output Total 2200 2940 Balance 1726.4 -514.8 Result Diagrams: 08/24/20 05:15 08/24/20 05:15 Phys Exam - Physical Examination Constitutional: NAD Dry MM Respiratory: clear to auscultation bilateral Cardiovascular: RRR, no significant murmur Gastrointestinal: soft, non-tender Musculoskeletal: no edema, pulses present Neurological: moves all 4 limbs Deviation from normal: Unable to assess Skin: no rash Dx/Plan - Plan Plan: Encephalopathy with choreiform movements - infectious and rheumatologic causes unlikely at this point. hemachromatosis unlikely with low ferritin, consider bechets - Consult neurology, appreciate recommendations. EEG showed mild to moderate generalized nonspecific cerebral dysfunction. - Positive drug screen for amphetamines- likely phentermine - LP cultures and HSV - MRI negative for acute intracranial pathology. - Pt extubated this morning and coming off of sedation. 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 Hypothyroidism - TSH was low, T4 was high on admission labs - continue levothyroxine but decrease home dose to 100mcg daily HTN - not on home meds - will monitor and assess need for chronic rx Dispo: Extubated this morning now on 2L with normal sats. Will continue to monitor. Possible trx to floor later today if pt continues to do well. Diet: Tube feeds Fluids: SL DVT ppx: Lovenox Code: FULL PCP: Dr. Tang in [place],
[2020-08-24 07:25] LABS: Actual Bicarbonate (HCO3a) 28.8 mEq/L (22-28); Base Excess (BEa) 4.2 mEq/L (-2.0 to +3.0); CO2 Tension 43.1 mmHg (35.0-45.0); Calcium, Ionized (arterial) 1.18 mmol/L (1.12-1.30); Carboxyhemoglobin (COHb) 0.5 gm% (0.0-3.0); Hemoglobin (Hb) 12.8 g/dL (12.0-16.0); O2 Tension (PaO2), arterial 86.8 mmHg (80.0-100.0); Potassium - ABG Lab 4.23 mmol/L (3.70-5.30); pH, Arterial 7.44 (7.35-7.45)
[2020-08-24 07:27] LABS: ALV-art Gradient 108.875 mmHg (0-20); Puncture Site RRA
--- NOTE | 2020-08-24 08:04 | RAD ---
XR Chest 1 View Portable History: Pneumonia Comparison: Radiograph prior day Findings: Small layering pleural effusions with bibasilar atelectasis. Endotracheal tube tip at the c lavicular level. Enteric tube tip at the gastric fundus. No pneumothorax. Heart size is similar. Impression: Similar examination of the chest.
--- NOTE | 2020-08-24 09:29 | PRG ---
DATE OF SERVICE: 08/24/2020 SUBJECTIVE: The patient has been on CPAP all morning, actually looks fairly stable, still somewhat encephalopathic. OBJECTIVE: VITAL SIGNS: Temperature 99.6, pulse 81, blood pressure 162/84, O2 sat 100%. HEENT: Unremarkable. NECK: No JVD. LUNGS: Clear anteriorly. CARDIAC: S1 and S2. Regular. ABDOMEN: Soft. EXTREMITIES: No edema. IMAGING STUDIES: Chest x-ray is fairly clear except for some linear atelectasis on the right middle lobe region. LABORATORY DATA: White blood cell count 9.7, hematocrit 35.1, and platelet count 282. PH of 7.44, pCO2 of 43, pO2 of 86. Sodium 141, potassium 4, chloride 102, CO2 of 32, BUN 29, creatinine 0.7, glucose 158. ASSESSMENT: 1. Acute respiratory failure requiring mechanical ventilation. 2. Altered mental status. 3. Question of possible Behcet disease. PLAN: I think we should go ahead and extubate and see how she does. She is currently on Keppra, which I assume is for possible underlying seizures. I will begin to wean the steroids. Job ID: [id number]
[2020-08-24] MEDS: levETIRAcetam in NS 500 MG in Premix Bag 1 BAG IVPB SCH ×2 (09:48→21:32)
[2020-08-24] MEDS: Pantoprazole 40 MG VIAL IVP SCH (09:48)
--- NOTE | 2020-08-24 13:41 | PRG ---
DATE OF SERVICE: 08/24/2020 Ms. Brown was admitted with encephalopathy and choreiform type movements. She initially required intubation. She was extubated earlier this morning and seems to be doing quite well. She is very slow to respond to questions, but does not seem particularly confused. She had a very large workup for her choreiform movements at [facility] some time ago. Another possibility is Behcet's. Job ID: [id number]
[2020-08-24] MEDS ORDERED: Ziprasidone 20 MG CAP PO SCH (19:00)
[2020-08-24] MEDS ORDERED: Ziprasidone 20 MG VIAL IM SCH (19:30)
[2020-08-25 03:55] LABS: ALT (SGPT) 24 U/L (8-55); AST (SGOT) 23 U/L (5-34); Albumin 3.4 g/dL (3.5-5.0); Alkaline Phosphatase 66 U/L (40-110); Anion Gap 13 mmol/L (10-20); BUN (Urea Nitrogen) 27 mg/dL (9.8-20.1); Bilirubin, Total 0.5 mg/dL (0.2-1.2); Calc. Creatinine Clearance 121 mL/min (70-130); Calcium 8.5 mg/dL (7.8-10.44); Carbon Dioxide 28 mmol/L (22-29); Chloride 104 mmol/L (98-107); Globulin 2.5 g/dL (2.4-3.5); Glucose 133 mg/dL (70-105); Potassium 4.3 mmol/L (3.5-5.1); Protein, Total 5.9 g/dL (6.0-8.3); Sodium 141 mmol/L (136-145)
[2020-08-25 04:18] LABS: Band 2 % (5-11); Hemoglobin 12.9 g/dL (12.0-16.0); Lymphocytes 5 % (21-51); MDiff Complete? YES; Mean Corpuscular HGB CONC 35.8 g/dL (32.0-36.0); Mean Corpuscular Hemoglobin 33.7 pg (27.0-31.0); Mean Corpuscular Volume 94.1 fL (78.0-98.0); Mean Platelet Volume 7.3 fL (7.4-10.4); Monocytes 1 % (0-10); Neutrophil 84 % (42-75); Platelet Count 275 thou/uL (130-400); Platelet Morphology Comment Appears Adequate; RBC Distribution Width 10.3 % (11.5-14.5); Reactive Lymphocytes 8 % (0-10); Red Blood Cell (RBC) Count 3.83 mill/uL (4.20-5.40); White Blood Cell (WBC) Count 10.2 thou/uL (4.8-10.8)
--- NOTE | 2020-08-25 05:42 | PDOC.FM ---
- Subjective Subjective: Pt resting in bed this AM. According to nursing, pt was agitated, crying, and inconsolable last night and was given 10mg of Geodon. She was resting peacefully after this administration. - Objective Vital Signs & Weight: Vital Signs (12 hours) Temp Pulse Ox 08/25/20 05:00 98.7 F 08/24/20 20:00 100 08/24/20 19:00 98.9 F Weight Admit Weight 90.265 kg Weight 93.3 kg Most Recent Monitor Data Heart Rate from ECG 54 NIBP 150/75 NIBP BP-Mean 100 Respiration from ECG 13 SpO2 100 I&O: 08/23/20 08/24/20 08/25/20 06:59 06:59 06:59 Intake Total 3926.4 2425.2 500.1 Output Total 2200 2940 3160 Balance 1726.4 -514.8 -2659.9 Result Diagrams: 08/25/20 03:47 08/25/20 03:00 Phys Exam - Physical Examination Constitutional: NAD on 1L NC HEENT: moist MMs Neck: supple Respiratory: no wheezing, no rales, no rhonchi, clear to auscultation bilateral Cardiovascular: RRR, no significant murmur, no rub Gastrointestinal: soft, non-tender, no distention, positive bowel sounds Musculoskeletal: pulses present Neurological: moves all 4 limbs Deviation from normal: unable to assess at this time, resting peacefully Skin: normal turgor Dx/Plan - Plan Plan: Encephalopathy with choreiform movements - infectious and rheumatologic causes unlikely at this point. hemachromatosis unlikely with low ferritin, considering bechets at this time - Neurology consulted EEG showed mild to moderate generalized nonspecific cerebral dysfunction. Keppra started and continued. 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 Hypothyroidism - TSH was low, T4 was high on admission labs - continue levothyroxine but decrease home dose to 100mcg daily HTN - not on home meds - will monitor and assess need for chronic rx Diet: Tube feeds Fluids: SL DVT ppx: Lovenox Code: FULL PCP: Dr. Tang in [place] Dispo as on 08/25/20: Extubated 08/24 now on 1L with normal sats. Will continue to monitor mental status at this time and for improvement. Pending transfer to medical floor.
[2020-08-25] MEDS: Levothyroxine Sodium 100 MCG TAB PO SCH (06:07)
[2020-08-25] MEDS: methylPREDNISolone Sod Succ 40 MG VIAL IVP SCH (06:09)
[2020-08-25] MEDS: Enoxaparin Sodium 40 MG/0.4 ML SYRINGE SC SCH (08:06)
[2020-08-25] MEDS: Pantoprazole 40 MG VIAL IVP SCH (08:06)
[2020-08-25] MEDS: levETIRAcetam in NS 500 MG in Premix Bag 1 BAG IVPB SCH ×2 (08:06→20:40)
[2020-08-25 08:14] LABS: Hemoglobin A1c 4.6 % (4.0-6.0)
[2020-08-25] MEDS: predniSONE 20 MG TAB PO SCH (08:20)
--- NOTE | 2020-08-25 08:26 | PRG ---
DATE OF SERVICE: 08/25/2020 SUBJECTIVE: Ms. Brown was extubated yesterday. She seems to be doing relatively well. She had no acute complaints other than wanting to go home. OBJECTIVE: VITAL SIGNS: Temperature 98.7, pulse 56, blood pressure 132/66, O2 saturations 100%. HEENT: Unremarkable. She had no oral ulcers that I could visualize. NECK: No JVD. LUNGS: Clear. CARDIAC: S1 and S2. Regular. ABDOMEN: Soft. EXTREMITIES: No edema. LABORATORY DATA: Sodium 141, potassium 4.3, chloride 104, CO2 of 28, BUN 27, creatinine 0.8, and glucose 133. White blood cell count 10.2, hematocrit 36.1, and platelet count 275. ASSESSMENT: 1. Status post respiratory failure requiring mechanical ventilation. 2. Altered mental status-improving. 3. Resolved anion gap metabolic acidosis. RECOMMENDATIONS: 1. Agree with transfer to floor. 2. I would be highly suspicious of psychiatric disease in this patient. I believe Behcet disease would be associated with some aspect of aphthous ulcers, which I do not see at this time. I will go ahead and start weaning her prednisone, discontinue this within 3 days. There are no further pulmonary recommendations at this time. We will sign off. Job ID: [id number]
--- NOTE | 2020-08-25 13:06 | PDOC.EEG ---
Neurology EEG Report - Report Report: This EEG was performed using 24 channel boolino video digital EEG machine with 24 disc electrode. This was an extended 2-hour 6 minutes of inpatient video EEG recording. Digital analysis of the EEG was done for [place] and seizure detection which revealed no abnormalities. Background: There is a nonsustained posterior background rhythm of 7 to 8 Hz. Minimal reactivity seen with eye opening and closure. Hyperventilation: Not performed. Photic stimulation: No significant response. Sleep: Drowsiness is observed. EEG diagnosis: Occasional irregular theta activity seen during the recording. Nonsustained slow posterior background rhythm. Clinical interpretation: This EEG is consistent with mild generalized nonspecific cerebral dysfunction. There is interval improvement since the prior study.
--- NOTE | 2020-08-25 13:08 | PDOC.NEUPN ---
- Subjective Encounter Date: 08/25/20 Subjective: Ms. Krueger is successfully extubated and is alert and oriented to person place and time. She is able to carry normal conversation and following commands appropriately. - Objective Vital Signs & Weight: Vital Signs (12 hours) Temp Pulse Ox 08/25/20 12:00 98.2 F 08/25/20 08:00 98.0 F 08/25/20 07:29 100 08/25/20 05:00 98.7 F Weight Admit Weight 199 lb Weight 205 lb 11.06 oz Most Recent Monitor Data Heart Rate from ECG 58 NIBP 161/72 NIBP BP-Mean 101 Respiration from ECG 12 SpO2 99 I&O: 08/24/20 08/25/20 08/26/20 06:59 06:59 06:59 Intake Total 2425.2 500.1 Output Total 2940 3195 1085 Balance -514.8 -2694.9 -1085 Result Diagrams: 08/25/20 03:47 08/25/20 03:00 Additional Labs: Accuchecks 08/24/20 08/24/20 08/24/20 21:38 17:20 13:02 POC Glucose 125 H 125 H 117 H Radiology Reviewed by me: Yes EKG Reviewed by me: Yes ROS - Review of Systems Constitutional: denies: fever, chills, sweats, weakness, malaise, other Eyes: denies: pain, vision change, conjunctivae inflammation, eyelid inflammation, redness, other ENT: denies: ear pain, ear discharge, nose pain, nose discharge, nose congestion, mouth pain, mouth swelling, throat pain, throat swelling, other Gastrointestinal: denies: nausea, vomiting, abdominal pain, diarrhea, constipation, melena, hematochezia, other Genitourinary: denies: dysuria, frequency, incontinence, hematuria, retention, other Musculoskeletal: denies: neck pain, shoulder pain, arm pain, back pain, hand pain, leg pain, foot pain, other - Medication Medications: Active Medications Generic Name Dose Route Start Last Admin Trade Name Freq PRN Reason Stop Dose Admin Enoxaparin Sodium 40 mg 08/25/20 09:00 08/25/20 08:06 Enoxaparin Sodium 40 Mg/0.4 Ml Syringe SC 40 mg 0900 MARYJANE Administration Levetiracetam 500 mg/ Device 100 mls @ 200 mls/hr 08/22/20 21:00 08/25/20 08:06 IVPB 100 mls BID MARYJANE Administration Levothyroxine Sodium 100 mcg 08/20/20 06:00 08/25/20 06:07 Levothyroxine Sodium 100 Mcg Tab PO Not Given 0600 MARYJANE Pantoprazole Sodium 40 mg 08/22/20 09:00 08/25/20 08:06 Pantoprazole 40 Mg Vial IVP 40 mg DAILY MARYJANE Administration Prednisone 20 mg 08/25/20 09:00 08/25/20 08:20 Prednisone 20 Mg Tab PO 08/28/20 09:01 20 mg DAILY MARYJANE Administration - Exam General Appearance: awake alert Eye: PERRL ENT: normocephalic atraumatic Neck: supple Respiratory: CTAB Cardiovascular: RRR Gastrointestinal: soft Extremities: no cyanosis Skin: normal turgor Neurological: CN's grossly intact, no focal deficits, no new deficit Musculoskeletal: normal tone, normal strength, no muscle wasting PSYCH: normal affect, normal behavior, A&O x 3, oriented to person, oriented to place, oriented to time Results - Labs Result Diagrams: 08/25/20 03:47 08/25/20 03:00 Lab results: WBC 10.2 thou/uL (4.8-10.8) 08/25/20 03:47 Hgb 12.9 g/dL (12.0-16.0) 08/25/20 03:47 Hct 36.1 % (36.0-47.0) 08/25/20 03:47 MCV 94.1 fL (78.0-98.0) 08/25/20 03:47 Plt Count 275 thou/uL (130-400) 08/25/20 03:47 Neutrophils % 84.5 % (42.0-75.0) H 08/24/20 05:15 Band Neuts % (Manual) 2 % (5-11) L 08/25/20 03:47 ESR Westergren 3 mm/hr (Less than 30) 08/19/20 23:30 ABG pH 7.44 (7.35-7.45) 08/24/20 07:05 ABG pCO2 43.1 mmHg (35.0-45.0) 08/24/20 07:05 ABG pO2 86.8 mmHg (80.0-100.0) 08/24/20 07:05 VBG pCO2 29.9 mmHg (40.0-50.0) L 08/19/20 16:54 VBG pO2 133.0 mmHg (35.0-45.0) H 08/19/20 16:54 Sodium 141 mmol/L (136-145) 08/25/20 03:00 Potassium 4.3 mmol/L (3.5-5.1) 08/25/20 03:00 Chloride 104 mmol/L (98-107) 08/25/20 03:00 Carbon Dioxide 28 mmol/L (22-29) 08/25/20 03:00 BUN 27 mg/dL (9.8-20.1) H 08/25/20 03:00 Creatinine 0.81 mg/dL (0.6-1.1) 08/25/20 03:00 Glucose 133 mg/dL (70-105) H 08/25/20 03:00 Lactic Acid 1.7 mmol/L (0.5-2.2) 08/20/20 00:29 Calcium 8.5 mg/dL (7.8-10.44) 08/25/20 03:00 Total Bilirubin 0.5 mg/dL (0.2-1.2) 08/25/20 03:00 AST 23 U/L (5-34) 08/25/20 03:00 ALT 24 U/L (8-55) 08/25/20 03:00 Alkaline Phosphatase 66 U/L (40-110) 08/25/20 03:00 Ammonia 37 umol/L (18-72) 08/19/20 15:40 Troponin I Less than 0.010 ng/mL (< 0.028) 08/19/20 15:40 C-Reactive Protein 15.73 mg/dL (= or < 0.5) H 08/19/20 23:30 Serum Total Protein 5.9 g/dL (6.0-8.3) L 08/25/20 03:00 Albumin 3.4 g/dL (3.5-5.0) L 08/25/20 03:00 Urine Ketones 20 mg/dL (Negative) A 08/19/20 15:40 Urine Blood Negative (Negative) 08/19/20 15:40 Urine Nitrite Negative (Negative) 08/19/20 15:40 Ur Leukocyte Esterase Negative Gena/uL (Negative) 08/19/20 15:40 Urine RBC 0-3 HPF (0-3) 08/19/20 15:40 Urine WBC 0-3 HPF (0-3) 08/19/20 15:40 Ur Squamous Epith Cells 0-3 HPF (0-3) 08/19/20 15:40 Urine Bacteria None Seen HPF (None Seen) 08/19/20 15:40 - Radiology Interpretation MRI - head Additional Comment: RI of the brain was negative for acute intracranial pathology PN A/P (1) AMS (altered mental status) Code(s): R41.82 - ALTERED MENTAL STATUS, UNSPECIFIED Status: Acute Qualifiers: Altered mental status type: delirium Qualified Code(s): R41.0 - Disorientation, unspecified (2) Depression Code(s): F32.9 - MAJOR DEPRESSIVE DISORDER, SINGLE EPISODE, UNSPECIFIED Status: Acute (3) Encephalopathy acute Code(s): G93.40 - ENCEPHALOPATHY, UNSPECIFIED Status: Acute (4) HTN (hypertension) Code(s): I10 - ESSENTIAL (PRIMARY) HYPERTENSION Status: Acute (5) Hypothyroidism Code(s): E03.9 - HYPOTHYROIDISM, UNSPECIFIED Status: Acute - Plan Daily Plan: PT/OT, speech therapy, DVT proph w/SCDs Ms. Spear is a 49-year-old female with history significant for depression and abnormal choreiform movements with oral ulcers and extensive work-up at [facility] presented with altered mental status. Altered mental status seems to be multifactorial but no clear etiology is evident from the testing so far. She had extensive work-up for hemochromatosis at [facility] and she was also diagnosed with seizure disorder per sister and [place] and was discharged on no seizure medication which she stopped taking it few days after discharge. She was prophylactically started on a seizure medication because of prior histo ry of presumed seizure which did improve the Choreiform movements of the extremities. Continue Keppra 500 mg p.o. twice daily till patient gets a follow-up with the neurology clinic in [place] for further management since they have access to the records and more details about the diagnosis and completed work-up EEG was repeated today since patient is off sedation which showed improvement in the study but no seizure activity was detected. Unable to review the records from [facility] about previous work-up since not available. Most of the information is obtained from Dr. Vasquez note which which showed some insight into the work-up at [facility] but have not seen the actual records. No clear history of autoimmune or infectious disease per records. This was a concern about hemochromatosis neurological manifestations since sister has been hemochromatosis. Sister was at bedside days ago. She has episodes of altered mental status with abnormal asynchronous movements whenever she develops mouth ulcers associated with extreme pain. She was recently intubated and sedated at [facility] and extensive testing was done and she was discharged home on a seizure medication which she stopped taking after 2 weeks. Neurochecks every 4 hours. MRI of the brain reviewed which did not show any evidence of acute intracranial pathology, bleed mass or evidence of demyelinating process EEG reviewed which was negative for seizure activity. LP results were essentially unremarkable. ID did not feel the need of any infectious disease work-up at this point Continue medical management per primary team and pulmonology. Plan discussed with the patient and the nursing staff .
--- NOTE | 2020-08-25 13:34 | PRG ---
DATE OF SERVICE: 08/25/2020 I have discussed the case with Dr. Odette Arriaza and agree with her assessment and plan. This morning, Ms. Brown is sitting quietly in bed, in absolutely no distress. Evidently last night, she became agitated, was crying and inconsolable and had to be given Geodon. I am beginning to be concerned about the possibility of a psychiatric illnesses opposed to organic illness. She may benefit from psychiatric consultation as an outpatient. Job ID: [id number]
[2020-08-25] MEDS ORDERED: Melatonin 3 MG TAB PO PRN (17:57)
--- NOTE | 2020-08-26 05:41 | PDOC.FM ---
- Subjective Subjective: Pt resting in bed this AM. No acute events overnight. She states that she worked well with PT yesterday and states that she is feeling better today. She still has some weakness and needs help with ambulation so that she doesn't fall but overall is feeling well. - Objective Vital Signs & Weight: Vital Signs (12 hours) Temp Pulse Pulse Pulse Resp BP BP 08/26/20 04:00 98 F 72 18 08/26/20 00:00 98.2 F 72 16 08/25/20 20:00 99.3 F 08/25/20 17:47 63 80 129/60 134/107 H BP Pulse Ox Pulse Ox Pulse Ox 08/26/20 04:00 150/86 H 95 08/26/20 00:00 142/88 H 98 08/25/20 20:00 08/25/20 17:47 100 100 Weight Admit Weight 90.265 kg Weight 93.3 kg Most Recent Monitor Data Heart Rate from ECG 78 NIBP 132/105 NIBP BP-Mean 114 Respiration from ECG 15 SpO2 100 I&O: 08/24/20 08/25/20 08/26/20 06:59 06:59 06:59 Intake Total 2425.2 500.1 206 Output Total 2940 3195 2460 Balance -514.8 -2294.9 -2444 Result Diagrams: 08/26/20 04:29 08/26/20 04:29 Phys Exam - Physical Examination Constitutional: NAD HEENT: moist MMs Neck: supple Respiratory: no wheezing, no rales, no rhonchi, clear to auscultation bilateral Cardiovascular: RRR, no significant murmur, no rub Gastrointestinal: soft, non-tender, no distention, positive bowel sounds Musculoskeletal: pulses present Neurological: moves all 4 limbs Psychiatric: normal affect, A&O x 3 Deviation from normal: slightly slow affect, unsure of baseline Skin: normal turgor Dx/Plan - Plan Plan: Encephalopathy with choreiform movements - infectious and rheumatologic causes unlikely at this point. hemachromatosis unlikely with low ferritin, considering bechets at this time - Neurology consulted EEG showed mild to moderate generalized nonspecific cerebral dysfunction. Keppra started and continued. 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 Hypothyroidism - TSH was low, T4 was high on admission labs - continue levothyroxine but decrease home dose to 100mcg daily HTN - not on home meds - will monitor and assess need for chronic rx Diet: Tube feeds Fluids: SL DVT ppx: Lovenox Code: FULL PCP: Dr. Tang in [place] Dispo as on 08/26/20: Extubated 08/24 now on RA with normal sats. PT recommended rehab however, pt is adamant that she would like home health physical therapy.
[2020-08-26 05:56] LABS: ALT (SGPT) 25 U/L (8-55); AST (SGOT) 19 U/L (5-34); Albumin 3.6 g/dL (3.5-5.0); Alkaline Phosphatase 67 U/L (40-110); Anion Gap 13 mmol/L (10-20); BUN (Urea Nitrogen) 28 mg/dL (9.8-20.1); Bilirubin, Total 0.6 mg/dL (0.2-1.2); Calc. Creatinine Clearance 113 mL/min (70-130); Calcium 8.5 mg/dL (7.8-10.44); Carbon Dioxide 25 mmol/L (22-29); Chloride 104 mmol/L (98-107); Globulin 2.5 g/dL (2.4-3.5); Glucose 99 mg/dL (70-105); Potassium 3.2 mmol/L (3.5-5.1); Protein, Total 6.1 g/dL (6.0-8.3); Sodium 139 mmol/L (136-145)
[2020-08-26 06:10] LABS: #Eosinphils 0.2 thou/uL (0.0-0.7); #Lymphocytes 2.9 thou/uL (1.20-3.40); #Neutrophils 6.5 thou/uL (1.40-6.50); %Basophils 0.1 % (0.0-1.0); %Eosinophils 2.3 % (0.0-10.0); %Lymphocytes 27.1 % (21.0-51.0); %Monocytes 9.6 % (0.0-10.0); %Neutrophils 60.9 % (42.0-75.0); Hemoglobin 14.3 g/dL (12.0-16.0); Mean Corpuscular HGB CONC 37.4 g/dL (32.0-36.0); Mean Corpuscular Hemoglobin 35.1 pg (27.0-31.0); Mean Corpuscular Volume 93.8 fL (78.0-98.0); Mean Platelet Volume 7.5 fL (7.4-10.4); Platelet Count 273 thou/uL (130-400); RBC Distribution Width 10.4 % (11.5-14.5); Red Blood Cell (RBC) Count 4.08 mill/uL (4.20-5.40); White Blood Cell (WBC) Count 10.6 thou/uL (4.8-10.8)
[2020-08-26] MEDS: Levothyroxine Sodium 100 MCG TAB PO SCH (06:19)
[2020-08-26] MEDS ORDERED: Potassium Chloride 20 MEQ TAB PO SCH (08:00)
[2020-08-26] MEDS ORDERED: levETIRAcetam 500 MG TAB PO SCH (09:00)
[2020-08-26] MEDS: predniSONE 20 MG TAB PO SCH (09:49)
[2020-08-26] MEDS: Enoxaparin Sodium 40 MG/0.4 ML SYRINGE SC SCH (09:49)
[2020-08-26 11:41] LABS: ANA Symphony (Qualitative) Negative (Negative); ANA Symphony (Quantitative) 0.3 Ratio (< 0.7 Negative); dsDNA IgG Antibody 0.8 IU/mL (<10 Negative)
--- NOTE | 2020-08-26 13:19 | PRG ---
DATE OF SERVICE: 08/26/2020 Ms. Brown is remarkably better this morning. She is completely awake, alert, oriented. She is talking appropriately and is even cheerful. Her speech is a little slow, but otherwise everything appears much more normal. She will be discharged today with instructions to have close followup with her personal physician and neurologist in [place] or [place]. Job ID: [id number]
[2020-08-26 16:03] VITALS: BP 151/96; TEMP 98.6
[2020-08-27] MEDS ORDERED: Levothyroxine Sodium 88 MCG TAB PO SCH (06:00)
--- NOTE | 2020-08-28 05:11 | PQF ---
Dear : Yonatan Barrios Date 08/28/2020 Please exercise your independent, professional judgment in responding to the clarification form. Clinical indicators are provided on the bottom of this form for your review Can you please further clarify the specificity and etiology of encephalopathy? Please check appropriate box(es): [ ] Metabolic Encephalopathy [ ] Toxic Encephalopathy [ ] Other diagnosis please specify [ ] Unable to determine In addition, please specify its etiology: [ ] Sepsis [ ] Behet's disease [ ] Drug overdose (amphetamines) [ ] Hemochromatosis [ ] Other diagnosis please specify please specify [ ] Unable to determine Physician Signature: Date/Time: For continuity of documentation, please document condition throughout progress notes and discharge summary. Thank You. To be completed by CDI/Coding staff for physician review: Present Clinical Indicators - Signs / Symptoms / Labs Results and Location in Medical Record [ x ] VS: BP: 1838/115, Pulse 119, RR: 30, T: 30 ED Provider pg.1 [ x ] Tachycardia ED Provider pg.2 [ x ] AMS, leukocytosis ED Provider pg.3 [ x ] Encephalopathy with choreiform H and P pg.4 [ x ] SIRS- tachycardic, febrile, tachypneic on admission H and P pg.4 [ x ] Drug screen + for amphetamines likely phentermine H and P pg.4 [ x ] Encephalopathy differential includes intoxication vs meningitis vs Behet H and P pg.5 [ x ] Encephalopathy, unknown etiology H and P pg.6 [ x ] Consider hemochromatosis with neuro manifestation Family Med pg.3 1210 [ x ] WBC: 35.5H, 12.8H Laboratory Present Risk Factors Results and Location in Medical Record [ x ] Family Hx of Hemochromatosis Dr. Vasquez 08/21 [ x ] HTN H and P pg.1 [ x ] Depression H and P pg.1 [ x ] SIRS H and P pg.4 [ x ] 49 years old H and P pg.1 Present Treatments Results and Location in Medical Record [ x ] Lumbar puncture 08/20 [ x ] Infectious Consult Dr. Vasquez 08/21 [ x ] IV Fluids MAR [ x ] Brain MRI 08/20 [ x ] Neurology Consult Dr. Munroe 06/22 [ x ] Cefepime 2gm MAR [ x ] Vancomycin 1.75gm MAR [ x ] Ampicillin 2gm MAR [ x ] Rocephin 2gm MAR CDS/Customer Supply Coordinator Signature: Mainor Valdovinos Phone #: [facility] [phone] Date 08/28/2020 This is a permanent part of the Medical Record [facility]
--- NOTE | 2020-08-29 03:50 | DIS ---
DATE OF ADMISSION: 08/19/2020 DATE OF DISCHARGE: 08/26/2020 RESIDENT: Oedtte Arriaza DO ADMITTING ATTENDING: Yonatan Coelho MD DISCHARGE ATTENDING: Gerardo Juarez MD CONSULTS: 1. Sung Alvarenga MD, of Pulmonology. 2. Aydee Munroe MD, of Neurology. 3. Rober Mast MD, of Pulmonology. PROCEDURES: Brain CT done on 08/19/2020 showed no intracranial hemorrhage or displaced calvarial fracture. Chest x-ray done on 08/19/2020 showed no acute processes. Daily chest x-rays were done after the patient was intubated and on 08/24/2020, when the patient was extubated, chest x-ray showed stable image of the chest. LP done on 08/20/2020 showed 11.5 mL of normal-appearing CSF fluid which did not grow any bacteria, viruses. Brain MRI done on 08/20/2020 showed questionable diffuse mild acute white matter pathology versus normal, consider followup. PRIMARY DIAGNOSES: Encephalopathy with choreiform movements, systemic inflammatory response syndrome, hemochromatosis allele positive. SECONDARY DIAGNOSES: Depression, hypothyroidism, hypertension. DISCHARGE MEDICATIONS: 1. Levothyroxine 100 mcg p.o. daily. 2. Prednisone 20 mg three tablets. 3. Keppra 500 mg p.o. b.i.d. DISCONTINUED MEDICATIONS: Levothyroxine 125 mcg. HISTORY OF PRESENT ILLNESS/HOSPITAL COURSE: The patient is a 49-year-old female with a past medical history of above, who presented to our institution altered. History was collected fully from the . The night before the patient's admission, the patient has started acting "weird." She complained of mouth ulcers, but no other complaints. She seemed to fidget more, but was still able to function. On the day of admission, the patient had become altered and started writhing around with sudden jerking movements. She was unable to communicate. The choreiform movements started in her face and then to her arms and legs. She had mouth ulcers for about 10 years and her notes that she complains of these ulcers. Over the summer, the patient was admitted to [facility] for similar episode of her choreiform movements and was intubated, and had a hospital stay of 2 to 3 weeks. She did not have a seizure disorder, but states that she has had seizures in the past and passed out with previous episodes, such as the one on her admission at this time. She was seen by many specialists and the does not know her certain diagnosis. stated that she sometimes will take medications that are not prescribed to her, such as depression medications and weight loss medications, but thinks that she is only taking thyroid medicine for now. He denied any complaints from the patient of fevers, chest pain, shortness of breath, vision changes, headache, abdominal pain, and diarrhea. The patient was intubated in the ED on propofol and fentanyl. A lumbar puncture was obtained. This did not yield any findings. Dr. Vasquez of [place] was consulted on the case and Dr. Vasquez was able to obtain the patient's records from [place], which essentially described that the patient had previous workup for hemochromatosis, which was negative. However, she does carry allele forward. The patient had been started on Keppra. They had suspected that the patient had some sort of autoimmune pathology, likely rheumatological in nature which needed outpatient followup. The patient was extubated on 08/24/2020 and took about a day to regain full mental status. Even after regaining mental status, it seemed that the patient still had slow speech and slow mentation. However, this had been patient's somewhat close to baseline per . It was found that the patient's medication was not therapeutic for hypothyroidism, it was changed from 125 to 100. The patient was advised to have outpatient followup with her PCP about this. 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 The patient was started on a short course of steroids for this. The patient was advised to follow up with outpatient Rheumatology. DISPOSITION: Stable. DISCHARGE INSTRUCTIONS: 1. Location: Home with home health physical therapy and occupational therapy. 2. Diet: Regular. 3. Activity: As tolerated. 4. Followup: Within 7 days with primary care physician; and within 4 to 6 weeks with Rheumatology outpatient; and within 4 weeks with Neurology outpatient. Job ID: [id number]
== END 2020-08-26 16:10 | disposition home health service (06) | DRG 545 ==
LOC: ERS 14:15 → CCU 19:30 → 2SE 08-25 21:27
PROVIDERS: ADMIT Student in an Organized Health Care Education/Training Program; ATTEND Student in an Organized Health Care Education/Training Program
PROC: 0BH17EZ Insertion of Endotracheal Airway into Trachea, Via Natural or Artificial Opening (ICD-10-PCS; principal; 2020-08-19)
PROC: 5A1955Z Respiratory Ventilation, Greater than 96 Consecutive Hours (ICD-10-PCS; 2020-08-19)
PROC: 0D9670Z Drainage of Stomach with Drainage Device, Via Natural or Artificial Opening (ICD-10-PCS; 2020-08-19)
PROC: 009U3ZX Drainage of Spinal Canal, Percutaneous Approach, Diagnostic (ICD-10-PCS; 2020-08-19)
PROC: B01BZZZ Fluoroscopy of Spinal Cord (ICD-10-PCS; 2020-08-19)
DX: M35.2 Behcet's disease (principal); J96.00 Acute respiratory failure, unspecified whether with hypoxia or hypercapnia; G93.40 Encephalopathy, unspecified; R65.10 Systemic inflammatory response syndrome (SIRS) of non-infectious origin without acute organ dysfunction; E87.2 Acidosis; E87.3 Alkalosis; E83.110 Hereditary hemochromatosis; E03.9 Hypothyroidism, unspecified; Z20.828 Contact with and (suspected) exposure to other viral communicable diseases; F32.9 Major depressive disorder, single episode, unspecified; E05.80 Other thyrotoxicosis without thyrotoxic crisis or storm; G93.89 Other specified disorders of brain; I10 Essential (primary) hypertension; Z79.890 Hormone replacement therapy; Z78.1 Physical restraint status
CPT/HCPCS: 0240U; 31500; 36415; 36416; 36600; 51702; 62270; 70450; 70553; 71045; 80053; 80202; 80306; 80307; 81001; 82140; 82330; 82435; 82728; 82803; 82805; 82945; 83036; 83540; 83550; 83605; 83735; 83930; 84132; 84145; 84157; 84295; 84436; 84443; 84481; 84484; 85014; 85025; 85652; 86038; 86140; 86225; 86780; 86803; 87040; 87070; 87086; 87205; 87340; 87389; 87529; 89051; 93005; 94002; 94003; 95712; 95816; 95819; 95957; 96361; 96365; 96366; 96367; 96368; 96375; 96376; C9113; J0133; J0290; J0692; J0696; J1200; J1650; J1940; J1953; J2060; J2704; J2920; J3010; J3370; J3480; J3486; J3490; J7030; J7050; J7070; J7512

== ENCOUNTER 2021-01-04 12:05 | Inpatient (IN) | payer BC ==
[2021-01-04] MEDS ORDERED: Pantoprazole 40 MG VIAL ONE (12:55)
[2021-01-04] MEDS ORDERED: Vancomycin 1 GM in Premix Bag 1 BAG IVPB SCH (13:15)
[2021-01-04] MEDS ORDERED: Lorazepam 2 MG/ML VIAL ONE (13:22)
[2021-01-04 13:31] LABS: Hemoglobin 14.4 g/dL (12.0-16.0); Mean Corpuscular HGB CONC 35.9 g/dL (32.0-36.0); Mean Corpuscular Hemoglobin 32.1 pg (27.0-31.0); Mean Corpuscular Volume 89.3 fL (78.0-98.0); Mean Platelet Volume 8.8 fL (7.4-10.4); Platelet Count 321 thou/uL (130-400); Red Blood Cell (RBC) Count 4.48 mill/uL (4.20-5.40); White Blood Cell (WBC) Count 21.7 thou/uL (4.8-10.8)
[2021-01-04 13:48] LABS: Band 15 % (5-11); Lymphocytes 4 % (21-51); MDiff Complete? YES; Monocytes 9 % (0-10); Neutrophil 70 % (42-75); Platelet Morphology Comment Appears Adequate; Polychromasia SLIGHT = 2-3 cells (100X) (0-2/hpf); Reactive Lymphocytes 2 % (0-10)
[2021-01-04 14:05] LABS: ALT (SGPT) 118 U/L (8-55); AST (SGOT) 217 U/L (5-34); Albumin 4.7 g/dL (3.5-5.0); Alkaline Phosphatase 93 U/L (40-110); Anion Gap 18 mmol/L (10-20); BUN (Urea Nitrogen) 39 mg/dL (9.8-20.1); Bilirubin, Total 1.7 mg/dL (0.2-1.2); CK (CPK) 3542 U/L (29-168); Calc. Creatinine Clearance 0 mL/min (70-130); Calcium 10.2 mg/dL (7.8-10.44); Carbon Dioxide 22 mmol/L (22-29); Chloride 97 mmol/L (98-107); Globulin 3.4 g/dL (2.4-3.5); Glucose 138 mg/dL (70-105); Protein, Total 8.1 g/dL (6.0-8.3); Sodium 133 mmol/L (136-145)
[2021-01-04] MEDS ORDERED: methylPREDNISolone Sod Succ 1,000 MG in Sodium Chloride 0.9% 100 ML IVPB SCH (14:45)
[2021-01-04 17:38] VITALS: BMI 26.2
[2021-01-04] MEDS: Famotidine 20 MG TAB PO SCH (21:04)
[2021-01-04] MEDS: levETIRAcetam in NS 500 MG in Premix Bag 1 BAG IVPB SCH (21:08)
[2021-01-04] MEDS: Lidocaine Viscous Sol 2% 15 ml UD Cup SSW SCH (21:08)
[2021-01-05 01:21] LABS: SARS-CoV-2 PCR by NAA Not Detected (NotDetected)
[2021-01-05] MEDS ORDERED: Levothyroxine Sodium 100 MCG TAB PO SCH (06:00)
[2021-01-05] MEDS: Levothyroxine Sodium 100 MCG TAB PO SCH (06:19)
[2021-01-05 07:20] LABS: #Lymphocytes 0.6 thou/uL (1.20-3.40); #Monocytes 0.2 thou/uL (0.11-0.59); #Neutrophils 8.9 thou/uL (1.40-6.50); %Basophils 0.1 % (0.0-1.0); %Eosinophils 0.1 % (0.0-10.0); %Lymphocytes 6.6 % (21.0-51.0); %Neutrophils 91.2 % (42.0-75.0); Hemoglobin 14.3 g/dL (12.0-16.0); Mean Corpuscular HGB CONC 35.7 g/dL (32.0-36.0); Mean Corpuscular Hemoglobin 32.5 pg (27.0-31.0); Mean Corpuscular Volume 90.9 fL (78.0-98.0); Mean Platelet Volume 8.7 fL (7.4-10.4); Platelet Count 309 thou/uL (130-400); RBC Distribution Width 11.1 % (11.5-14.5); White Blood Cell (WBC) Count 9.8 thou/uL (4.8-10.8)
[2021-01-05 07:27] LABS: ALT (SGPT) 102 U/L (8-55); AST (SGOT) 110 U/L (5-34); Albumin 4.4 g/dL (3.5-5.0); Alkaline Phosphatase 81 U/L (40-110); Anion Gap 15 mmol/L (10-20); BUN (Urea Nitrogen) 32 mg/dL (9.8-20.1); Bilirubin, Total 1.2 mg/dL (0.2-1.2); Calc. Creatinine Clearance 76 mL/min (70-130); Calcium 10.1 mg/dL (7.8-10.44); Carbon Dioxide 24 mmol/L (22-29); Chloride 99 mmol/L (98-107); Globulin 2.9 g/dL (2.4-3.5); Glucose 150 mg/dL (70-105); Potassium 3.3 mmol/L (3.5-5.1); Protein, Total 7.3 g/dL (6.0-8.3); Sodium 135 mmol/L (136-145)
[2021-01-05] MEDS: Lidocaine Viscous Sol 2% 15 ml UD Cup SSW SCH ×4 (09:35→20:46)
[2021-01-05] MEDS: Enoxaparin Sodium 40 MG/0.4 ML SYRINGE SC SCH (09:35)
[2021-01-05] MEDS: levETIRAcetam in NS 500 MG in Premix Bag 1 BAG IVPB SCH ×2 (09:41→20:46)
[2021-01-05] MEDS: Famotidine 20 MG TAB PO SCH ×2 (09:41→20:46)
[2021-01-05] MEDS ORDERED: hydrALAZINE 25 MG TAB PO PRN (15:02)
[2021-01-05] MEDS ORDERED: methylPREDNISolone Sod Succ/PF 1,000 MG in Sodium Chloride 0.9% 250 ML 250 ML IVPB SCH (16:00)
[2021-01-05] MEDS ORDERED: HYDROcodone/Acetaminophen 5/325 mg Tablet PO PRN (17:44)
[2021-01-05] MEDS ORDERED: diphenhydrAMINE 25 MG CAP PO PRN (17:45)
[2021-01-05] MEDS ORDERED: Melatonin 3 MG TAB PO PRN (17:45)
[2021-01-06] MEDS: Levothyroxine Sodium 100 MCG TAB PO SCH (06:02)
[2021-01-06] MEDS ORDERED: HumaLOG 300 UNITS/3 ML VIAL SC PRN (07:15)
[2021-01-06] MEDS ORDERED: Dextrose 50% Abboject 50 ML SYRINGE SLOW IVP PRN (07:15)
[2021-01-06] MEDS ORDERED: Insulin Regular 300 UNITS/3 ML VIAL SC PRN (07:15)
[2021-01-06] MEDS ORDERED: Dextrose 5% in Water 1,000 ML IV PRN (07:15)
[2021-01-06] MEDS ORDERED: Potassium Chloride 20 MEQ TAB PO SCH (07:15)
[2021-01-06 08:23] LABS: #Lymphocytes 0.7 thou/uL (1.20-3.40); #Monocytes 0.5 thou/uL (0.11-0.59); #Neutrophils 8.9 thou/uL (1.40-6.50); %Basophils 0.1 % (0.0-1.0); %Eosinophils 0.1 % (0.0-10.0); %Lymphocytes 6.7 % (21.0-51.0); %Monocytes 4.6 % (0.0-10.0); %Neutrophils 88.6 % (42.0-75.0); Hemoglobin 13.7 g/dL (12.0-16.0); Mean Corpuscular HGB CONC 35.9 g/dL (32.0-36.0); Mean Corpuscular Volume 91.9 fL (78.0-98.0); Mean Platelet Volume 8.4 fL (7.4-10.4); Platelet Count 311 thou/uL (130-400); RBC Distribution Width 11.1 % (11.5-14.5); Red Blood Cell (RBC) Count 4.15 mill/uL (4.20-5.40)
[2021-01-06 08:42] LABS: Anion Gap 13 mmol/L (10-20); BUN (Urea Nitrogen) 28 mg/dL (9.8-20.1); Calc. Creatinine Clearance 85 mL/min (70-130); Calcium 9.9 mg/dL (7.8-10.44); Carbon Dioxide 26 mmol/L (22-29); Chloride 101 mmol/L (98-107); Glucose 157 mg/dL (70-105); Potassium 3.5 mmol/L (3.5-5.1); Sodium 136 mmol/L (136-145)
[2021-01-06] MEDS: Enoxaparin Sodium 40 MG/0.4 ML SYRINGE SC SCH (09:05)
[2021-01-06] MEDS: Famotidine 20 MG TAB PO SCH (09:05)
[2021-01-06] MEDS: Lidocaine Viscous Sol 2% 15 ml UD Cup SSW SCH ×2 (09:06→14:10)
[2021-01-06] MEDS: levETIRAcetam in NS 500 MG in Premix Bag 1 BAG IVPB SCH (09:10)
[2021-01-06 11:38] VITALS: BP 120/80; TEMP 97.6
== END 2021-01-06 14:58 | disposition home or self-care (01) | DRG 545 ==
LOC: ERS 12:05 → ERHOLD 13:54 → T4-A 17:11 → OBSVTOIN 01-05 16:00
PROVIDERS: ADMIT Internal Medicine; ATTEND Internal Medicine
DX: M35.2 Behcet's disease (principal); G93.41 Metabolic encephalopathy; E87.1 Hypo-osmolality and hyponatremia; N17.9 Acute kidney failure, unspecified; G12.20 Motor neuron disease, unspecified; Z20.822 Contact with and (suspected) exposure to COVID-19; D72.829 Elevated white blood cell count, unspecified; I10 Essential (primary) hypertension; E03.9 Hypothyroidism, unspecified; G40.909 Epilepsy, unspecified, not intractable, without status epilepticus; M12.20 Villonodular synovitis (pigmented), unspecified site; R73.9 Hyperglycemia, unspecified; T38.0X5A Adverse effect of glucocorticoids and synthetic analogues, initial encounter; Z79.890 Hormone replacement therapy; Z79.899 Other long term (current) drug therapy; Z79.52 Long term (current) use of systemic steroids
CPT/HCPCS: 36415; 36416; 70496; 70553; 80048; 80053; 82550; 85025; 87635; 95712; 95819; 95957; 96372; 96374; 96375; C9113; G0378; J1650; J1953; J2060; J2930; J3370; J3490; J7050; U0003; U0005

== ENCOUNTER 2021-09-14 09:20 | Outpatient (CLI) | payer BC | END 2021-09-14 09:21 | disposition home or self-care (01) | LOC: BICMAMMO 09:20 | PROVIDERS: ATTEND Registered Nurse | DX: N95.9 Unspecified menopausal and perimenopausal disorder (principal); M85.851 Other specified disorders of bone density and structure, right thigh; M85.852 Other specified disorders of bone density and structure, left thigh | CPT/HCPCS: 77080 ==

== ENCOUNTER 2023-09-05 09:58 | Outpatient (CLI) | payer BC | END 2023-09-05 09:59 | disposition home or self-care (01) | LOC: BICMAMMO 09:58 | PROVIDERS: ATTEND Registered Nurse | DX: Z12.31 Encounter for screening mammogram for malignant neoplasm of breast (principal) | CPT/HCPCS: 77063; 77067 ==